=== PATIENT | female | born 1945 | race Caucasian/White ===

== ENCOUNTER 2024-05-15 13:03 | Emergency (ER) | payer MEDICARE, SELFPAY ==
[2024-05-15 13:13] VITALS: BP 117/85; PULSE 81; RESP 16; TEMP 36.6; O2SAT 99
--- OUTSIDE RECORDS SUMMARY | 2024-05-15 13:23 | XMS_ITS | CONTINUITY OF CARE DOCUMENT ---
Author Name daniel sanchez Address Unknown Organization [facility] Address [id number] [place] [address] [address] [place] [address] Phone [phone] Care Team Providers Care Licensed Nuclear Control Room Operator Name Role Phone Harshal LOVING, Mehdi Unavailable [phone] KRISTIN CHRISTOPHER MD Unavailable [phone] PROBLEMS Condition Status Date Provider Notes Cardiology examination active Mehdi gallegos MD Chest pain active Mehdi Caputo MD Shortness of breath with exertion active Mehdi Caputo MD Elevated blood pressure read ing without diagnosis of hypertension completed - Mehdi Caputo MD HTN essential active Mehdi Caputo MD Hyperlipidemia active Mehdi Caputo MD Preoperative cardiovascular evaluation active Faustino Quintana ENCOUNTERS Date Type Provider Location Encounter Diag nosis - In-person encounter Office Visit José Miguel Meyer MD [facility] Preoperative cardiovascular evaluation - In-person encounter Office Visit Mehdi Caputo MD [facility] - In-person encounter Office Visit Mehdi Caputo MD [facility] Elevated blood pressure reading without diagnosis of hypertension - In-person encounter Office Visit Mehdi Caputo MD [facility] Cardiology examinationChest painShortness of breath with exertionHTN essentialHyperlipidemia VITAL SIGNS Date Observation Value Provider Body Mass Index (Ratio) 24.96 kg/m2 Sohan Meyer MD blood pressure, diastolic 68 mm[Hg] Poonam nkLogwilbert blood pressure, systolic 138 mm[Hg] Mariah [facility] oxygen saturation, oximetry 95 % Kenyatta Orting pulse rate 84 /min Kenyatta Orting respiratory rate E&M 12 /min Kenyatta Orting weight E&M 145.4 [lb_av] Kenyatta Orting height E&M 64 [in_i] Kenyatta Orting blood pressure, cuff size regular Raymond crow Orting blood pressure, diastolic 68 mm[Hg] Raymond crow Orting blood pressure, systolic 138 mm[Hg] [facility] Body Mass Index (Ratio) 34.67 kg/m2 Mirza Caputo MD blood pressure, diastolic 93 mm[Hg] Herminia Wilson blood pressure, systolic 176 mm[Hg] Lisette Wilson pulse rate 74 /min Sydni Wilson oxygen saturation, oximetry 98 % Sydni Wilson weight E&M 202 [lb_av] Sydniteri Wilson blood pressure, cuff size large An froilan Wilson height E&M 64 [in_i] Sydni Wilson Body Mass Index (Ratio) 25.74 kg/m2 Mirza Caputo MD blood pressure, diastolic 96 mm[Hg] Poonam nkLogwilbert blood pressure, systolic 166 mm[Hg] Mariah og blood pressure, cuff size regular Ja rret blood pressure, diastolic 96 mm[Hg] Ja rret blood pressure, systolic 166 mm[Hg] Jar ret pulse rate 74 /min Jorge respiratory rate E&M 16 /min Jorge oxygen saturation, oximetry 97 % Jorge weight E&M 150 [lb_av] Jorge y height E&M 64 [in_i] Jorge y Body Mass Index (Ratio) 26.09 kg/m2 Mirza Caputo MD blood pressure, diastolic 82 mm[Hg] Ri carla Bloom blood pressure, systolic 150 mm[Hg] Nahun dakota Bloom blood pressure, cuff size regular Hany Bloom oxygen saturation, oximetry 96 % Janna Bloom respiratory rate E&M 16 /min Hansa Bloom pulse rate 78 /min Janna frederick weight E&M 152 [lb_av] Janna frederick height E&M 64 [in_i] Janna frederick ALLERGIES No Known Drug Allergies HISTORY OF MEDICATION USE Medication Status Instructions Dates Provider Indications Com ments carvedilol 6.25 mg tablet active TAKE 1 TABLET BY MOUTH TWICE A DAY memantine 10 mg tablet active Take 1 tablet by mouth once a day Jorge ibuprofen 800 mg tablet active TAKE 1 TABLET BY MOUTH 3 TIMES DAILY NEEDED FOR PAIN carvedilol 6.25 mg tablet completed Take 1 tablet by mouth twice daily - 4 Jorge atorvastatin 40 mg tablet active Take 1 tablet by mouth once a day Jorge SOCIAL HISTORY Date Observation Value Provider smoking status Never smoker Faustino Quintana smoking status Never smoker Sydni Wilson smoking status Never smoker Mehdi gallegos MD number of grandchildren Mehdi Caputo MD social history E&M S moking History: Andi pawan has never smoked. Mehdi Caputo MD social history reviewed E&M revi ewed - no changes required Mehdi Caputo MD smoking status Never smoker Janna mcarthur INSURANCE PROVIDERS Payer name Policy type / Coverage type Leila red [employer] party ID [employer] H[employer]-POS HMO [id number] ADVANCE DIRECTIVES Name Date DISCUSSED - NO DECISION MADE TREATMENT PLAN Date Name Performer [id number],C,on statin Ruth Ann Caputo MD [id number],C,BP elevated.O n coreg. Mehdi Caputo MD [id number],W,L eft arm and left chest pain with SOB.at rest and on effort. Abnormal EKG and hyperlipidemia. Will arrange exercise stress myoview and echocardiogram. Mehdi Caputo MD Cardiology:This visi t has been a part of the consistent, comprehensive, and ongoing management of the chronic medical condition(s) listed above for the patient. BP today: 138/68 P rior BP: 176/93 (07/03/2023) Her updated medication list for this problem includes: Carvedilol 6.25 Mg Tablet (Carvedilol) ..... Take 1 tablet by mouth twice a day José Miguel Meyer MD Cardiology: H er updated medication list for this problem includes: Carvedilol 6.25 Mg Tablet (Carvedilol) ..... Take 1 tablet by mouth twice a day Orders: S tress Regadenoson ([id number]) Faustino Quintana Cardiology: H er updated medication list for this problem includes: Atorvastatin 40 Mg Tablet (Atorvastatin) ..... Take 1 tablet by mouth once a day Faustino Quintana Cardiology: O rders: S tress Regadenoson ([id number]) Faustino Quintana Cardiology: O rders: S tress Regadenoson ([id number]) Her updated medication list for this problem includes: Carvedilol 6.25 Mg Tablet (Carvedilol) ..... Take 1 tablet by mouth twice a day Faustino Quintana Cardiology: B P today: 138/68 P rior BP: 176/93 (07/03/2023) Her updated medication list for this problem includes: Carvedilol 6.25 Mg Tablet (Carvedilol) ..... Take 1 tablet by mouth twice a day Faustino Quintana Cardiology: H er updated medication list for this problem includes: Atorvastatin 40 Mg Tablet (Atorvastatin) ..... Take 1 tablet by mouth once a day Mehdi Caputo MD Cardiology: Mireya wang. Her updated medication list for this problem includes: Carvedilol 6.25 Mg Tablet (Carvedilol) ..... Take 1 tablet by mouth twice daily Mehdi Caputo MD Cardiology:Remains e levated S he will monitor at home B P today: 176/93 P rior BP: 166/96 (06/06/2023) Her updated medication list for this problem includes: Carvedilol 6.25 Mg Tablet (Carvedilol) ..... Take 1 tablet by mouth twice daily Mehdi Caputo MD Cardiology:No recurr ance since last visit C ontinues on coreg E F 60% Mehdi Caputo MD Cardiology: I ntermittent chest pain since recent passings of her son and . Will obtain echo and optimize BP control. Mehdi Caputo MD Cardiology: C ontinues on atorvastatin. Mehdi Caputo MD Cardiology: Mireya wang. Mehdi Caputo MD Cardiology: B P elevated. On coreg. Will increase coreg to 6.25mg BID. We aim for a BP of 130/80 or lower. She would certainly benefit from an echo to evaluate her LVF and wall motion. Mehdi Caputo MD Cardiology:on statin Mehdi angulo MD Cardiology:BP elevated.On coreg. Mehdi Caputo MD Cardiology:Left arm and left chest pain with SOB.at rest and on effort. Abnormal EKG and hyperlipidemia. Will arrange exercise stress myoview and echocardiogram. Mehdi Caputo MD Date Name Stress Regadenoson Complete Echo Complete Echo Stress Exercise Card iolite HISTORY OF PROCEDURES Procedure Date Procedure Name Provider Procedure Notes S tatus EKG José Miguel Meyer MD completed EKG Mehdi Caputo MD complet ed EKG Mehdi Caputo MD complet ed EKG Mehdi Caputo MD complet ed
--- OUTSIDE RECORDS SUMMARY | 2024-05-15 13:23 | XMS_ITS | Data Portability ---
Author Organization [place] - [facility] [employer], Main Office Address [address] [place] [address] Care Team Providers Care Pocket Grinder Operator Name Role Phone GUILHERME REECE Primary Care Provider [phone] GUILHERME REECE Referring Provider Assessment Encounter Date Assessment Date Assessment LastModified by Organization Details LastModified Time 01/02/2023 01/02/2023 Medicare Wellness Exam --Continue current medications/tr eatments for chronic medical issues. --Recommend mammogram & DEXA scan, pt declines at this time. --Pneumonia vaccination recommended, pt declines. --Flu vax not due until fall. --Recommend Hep B series, pt declines at this time. --Advanced directives information given previously. --Due for colonoscopy, referral generated previously. --Recommend routine yearly f/u for dental, vision, hearing evaluations. -- Hep C screening declined at this time.. --Zkh-Jawwvh-K DCT not indicated at this time. --Recommend shingles vaccination, pt declines at this time. --Recommend Tdap, pt declines at this at this time. --Due for routine labs, pt declines to get labs today. [email or web address] Not available 01/02/2023 09:52:26 Plan of Treatment Reminders Order Date Submit Date Provider Last Modified By Organization Details Last Modified Time Details Appointments None recorded. Lab CBC w/ auto diff 2023 024 [email or web address] 4 [facility] (Lab), [address] [place], [address], 17:18:09 CMP, serum or plasma 2023 024 [email or web address] 4 [facility] (Lab), [address] [place], [address], 4 17:18:27 vitamin D, 25-hydroxy, total, serum [address] (Lab), [address] [place], [address], 3 16:56:08 CBC [address] (Lab), [address] [place], [address], 3 16:54:28 CMP, serum or plasma [address] (Lab), [address] [place], [address], 3 16:54:50 urinalysis complete, reflex culture 2022 023 [email or web address] 5 [facility] (Lab), [address] [place], [address], 3 10:20:25 lipid panel, serum [address] (Lab), [address] [place], [address], 3 16:55:48 Referral cardiologis t referral - Please call patient to schedule an appointment 2023 024 [email or web address] [facility] Referral Fax Line, [address] [facility] [address], [place], [address], 4 08:49:33 tie buyer referral 2022 023 [email or web address] 3 [facility], [address], [place], [address], 3 09:09:29 ophthalmolo gist referral 2022 023 [email or web address] 3 Adolfo Galindo MD, [address] [place], [address], 3 08:03:15 otolaryngol ogist referral 2022 023 [email or web address] 3 Zack Napier, [address], [place], [address], 3 08:38:07 Procedures None recorded. Surgeries None recorded. Imaging electrocard iogram 2023 024 [email or web address] 477 [facility] [address], [place], [address], 4 18:03:51 Medication Orders escitalopra m 10 mg tablet 2023 024 [facility] #[id number], [address] [facility], [place], [address], 4 16:10:23 Patient TargetsNo targets recorded. Patient Instructions Encounter Date Encounter Id Patient Instructions Last Modified By Organization Details Last Modified Time 01/02/2023 [id number] dementia rating scale-2* Not available 01/03/2023 08:49:33 risk assessment* Not available 01/03/2023 08:52:41 fall risk assessment* Not available 01/24/2023 13:52:49 multi-dimensiona l health assessment questionnaire* [email or web address] Not available 01/03/2023 08:49:19 advance directiv es: care instructions Not available 01/02/2023 16:20:21 [place] Advance Directives [email or web address] Not available 01/02/2023 16:20:21 advance care planning: care instructions [email or web address] Not available 01/02/2023 16:20:21 care plan* [email or web address] Not available 01/03 08:49:29 alcohol misuse* [email or web address] Not available 01/03/2023 08:49:51 Personalized [facility] lt Plan and Screening Recommendations Advance Directives - Do you have one? No You have indicated that you are capable of preparing your advance care directive Advance Directives - Do we have your advance directive on file in your health record? Primary Prevention/Interven tion (prevents or decreases the chance of common diseases from occurring) Smoking Risk: Non Smoker Alcohol Misuse Screening: Negative Weight: Appropriate Physical activity: Need more exercise/physical activity minimum of 10-20 minutes of activity that causes mild breathlessness/day Nutrition: Good Average Fall Risk (screened today): Low Vaccines Pneumococcal: Ordered Recommended today Recommended today, but you have declined Influenza: Ordered Recommended today Recommended today, but you have declined Chronic Disease Risks Stroke: Low Risk I have no recommendations Act espinoza diagnosis, Continue current treatment plan Heart Attack: Low risk I have no recommendations Act espinoza diagnosis, Continue current treatment plan Clogging of the Arteries: Low risk I have no recommendations Act espinoza diagnosis, Continue current treatment plan Diabetes: Low Risk Active diagnosis, Continue current treatment plan Secondary Prevention/Interven tion (detects treatable diseases before they may cause symptoms, disability, or ) Breast Cancer Screening with mammogram: Your next mammogram: Ordered Recommended today Recommended today, but you have declined Cervical/Uterine/Ov jesenia Cancer Screening: Your next PAP/pelvic in: Referral to food service tray attendant Recomm ended today Recommended today, but you have declined Osteoporosis Screening: Your next DEXA in: Ordered Recomme nded today Recommended today, but you have declined Date Screening Last Performed: Colon Cancer Screening: Colonoscopy In: Ordered Recomme nded Recommended today, but you have declined Date Screening Last Performed: Eye Disease Screening: Ordered Recommended today Dementia Risk: High My recommendation would be to have an appointment with the Neurologist Depression Screening: Negative Active diagnosis, Continue current treatment plan [email or web address] Not available 01/02/2023 15:11:13 Reason for Referral Water Pumper Referral fo r Hearing difficulty Referring Physician: Guilherme Reece [facility] Medicine, Encounter Date: 10/02/2022 Hide Or Skin Buffer Referral for Abnormal vision Referring Physician: Guilherme Reece Family Medicine, Encounter Date: 10/02/2022 Youth Ministry Director Referral for Hea ring difficulty Referring Physician: Guilherme Reece Family Medicine, Encounter Date: 11/13/2022 Helpdesk Manager Referral for Ch est pain Please call patient to schedule an appointment Referring Physician: Kathia Kurtz Family [facility], Encounter Date: 05/23/2023 Results Created Date Observation Date Name Description Value Unit Range Abnormal Flag Note LastModifiedBy Organization Detail LastModifiedTime 01/03/2001/02/2023 CBC W/O DIFFE RENTI AL white blood cells 5.8 x10'3 /uL 4.2-10 .8 Not Available [facility] (Lab) [address] [place], [address], 01/02/2023 19:20:55 01/03/2001/02/2023 CBC W/O DIFFE RENTI AL red blood cells 4.93 x10'6 /uL 3.80-5 .20 Not Available [facility] (Lab) [address] [place], [address], 01/02/2023 19:20:55 01/03/2001/02/2023 CBC W/O DIFFE RENTI AL hemoglobin 14.9 g/dL 12.0-1 5.6 Not Available [facility] (Lab) [address] [place], [address], 01/02/2023 19:20:55 01/03/2001/02/2023 CBC W/O DIFFE RENTI AL hematocrit 46.9 % 35.7-4 5.7 high Not Available [facility] (Lab) [address] [place], [address], 01/02/2023 19:20:55 01/03/2001/02/2023 CBC W/O DIFFE RENTI AL mean red cell volume 95.1 fL 82.0-9 9.0 Not Available [facility] (Lab) [address] [place], [address], 01/02/2023 19:20:55 01/03/2001/02/2023 CBC W/O DIFFE RENTI AL mean red cell hemoglobin 30.2 pg 27.0-3 3.0 Not Available [facility] (Lab) [address] [place], [address], 01/02/2023 19:20:55 01/03/2001/02/2023 CBC W/O DIFFE RENTI AL mean RBC HGB concentratio n 31.8 g/dL 31.0-3 6.0 Not Available [facility] (Lab) [address] [place], [address], 01/02/2023 19:20:55 01/03/2001/02/2023 CBC W/O DIFFE RENTI AL red cell distribution width 13.4 % 11.8-1 5.5 Not Available [facility] (Lab) [address] [place], [address], 01/02/2023 19:20:55 01/03/2001/02/2023 CBC W/O DIFFE RENTI AL platelets 216 x10'3 /uL 150-40 0 Not Available [facility] (Lab) [address] [place], [address], 01/02/2023 19:20:55 01/03/2001/02/2023 CBC W/O DIFFE RENTI AL mean platelet volume 10.0 fL 9.0-12 .4 Not Available [facility] (Lab) [address] [place], [address], 01/02/2023 19:20:55 01/03/2001/02/2023 COMPR EHENS ESPINOZA METAB OLIC PANEL sodium 138 mmol/ L 137-14 5 Not Available [facility] (Lab) [address] [place], [address], 01/02/2023 19:40:16 01/03/20 23 01/02/2023 COMPR EHENS ESPINOZA METAB OLIC PANEL potassium 4.1 mmol/ L 3.5-5. 1 Not Available [facility] (Lab) [address] [place], [address], 01/02/2023 19:40:16 01/03/20 23 01/02/2023 COMPR EHENS ESPINOZA METAB OLIC PANEL chloride 106 mmol/ L 98-107 Not Available [facility] (Lab) [address] [place], [address], 01/02/2023 19:40:16 01/03/2001/02/2023 COMPR EHENS ESPINOZA METAB OLIC PANEL carbon dioxide 32 mmol/ L 22-30 high Not Available [facility] (Lab) [address] [place], [address], 01/02/2023 19:40:16 01/03/2001/02/2023 COMPR EHENS ESPINOZA METAB OLIC PANEL anion gap 4.1 mmol/ L 14-22 low Not Available [facility] (Lab) [address] [place], [address], 01/02/2023 19:40:16 01/03/20 23 01/02/2023 COMPR EHENS ESPINOZA METAB OLIC PANEL glucose 133 mg/dL 70-99 high Not Available [facility] (Lab) [address] [place], [address], 01/02/2023 19:40:16 01/03/20 23 01/02/2023 COMPR EHENS ESPINOZA METAB OLIC PANEL BUN 12 mg/dL 8-19 Not Available [facility] (Lab) [address] [place], [address], 01/02/2023 19:40:16 01/03/20 23 01/02/2023 COMPR EHENS ESPINOZA METAB OLIC PANEL creatinine 0.77 mg/dL 0.66-1 .25 Not Available [facility] (Lab) [address] [place], [address], 01/02/2023 19:40:16 01/03/2001/02/2023 COMPR EHENS ESPINOZA METAB OLIC PANEL GFR >60 Refer ence Range : [place] ge GFR Healt hy Adult : >60 mL/mi n/1.7 3 m2 Chron ic Kidne y Disea se: 15-60 mL/mi n/1.7 3 m2 Kidne y Failu re: <15/m L/min /1.73 m2 www.n iddk. nih.g ov The MDRD study equat ion has not been valid ated in child bashir <18 years of age; pregn ant women ; the elder ly >85 years of age; or in some racia l or ethni c subgr oups, such as Hispa nics. Outsi de the valid ated sera eters , estim ated GFR is less accur ate, requi ring clini tacos judgm ent on a case- by-ca se basis . Clini tacos inter preta tion for other races and ages must be made by the clini mariel. The MDRD study equat ion has not been valid ated for the evalu ation of serum creat inine relat ed to nutri erick l statu s or medic ation usage . For perso ns <18 years of age, a pedia tric GFR calcu lator is avail able on the [facility] websi te: https :[email or web address] chery.love zendejas/pr ofess ional s/kdo qi/gf r_cal culat or Not Available [facility] (Lab) [address] [place], [address], 01/02/2023 19:40:16 01/03/2001/02/2023 COMPR EHENS ESPINOZA METAB OLIC PANEL alkaline phosphatase 99 U/L 38-126 Not Available [facility] (Lab) [address] [place], [address], 01/02/2023 19:40:16 01/03/2031 1201/02/2023 COMPR EHENS ESPINOZA METAB OLIC PANEL alanine aminotransfe rase 20 U/L 0-35 Not Available [facility] (Lab) [address] [place], [address], 01/02/2023 19:40:16 01/03/20 23 01/02/2023 COMPR EHENS ESPINOZA METAB OLIC PANEL aspartate aminotransfe rase 24 U/L 15-37 Not Available [facility] (Lab) [address] [place], [address], 01/02/2023 19:40:16 01/03/2001/02/2023 COMPR EHENS ESPINOZA METAB OLIC PANEL bilirubin, total 0.90 mg/dL 0.20-1 .30 Not Available [facility] (Lab) [address] [place], [address], 01/02/2023 19:40:16 01/03/2001/02/2023 COMPR EHENS ESPINOZA METAB OLIC PANEL calcium 9.7 mg/dL 8.4-10 .2 Not Available [facility] (Lab) [address] [place], [address], 01/02/2023 19:40:16 01/03/2001/02/2023 COMPR EHENS ESPINOZA METAB OLIC PANEL total protein 7.2 g/dL 6.3-8. 2 Not Available [facility] (Lab) [address] [place], [address], 01/02/2023 19:40:16 01/03/2001/02/2023 COMPR EHENS ESPINOZA METAB OLIC PANEL albumin 4.2 g/dL 3.0-4. 4 Not Available [facility] (Lab) [address] [place], [address], 01/02/2023 19:40:16 01/03/20 23 01/02/2023 COMPR EHENS ESPINOZA METAB OLIC PANEL globulin 3.0 g/dL 2.6-4. 2 Not Available [facility] (Lab) [address] [place], [address], 01/02/2023 19:40:16 01/03/20 23 01/02/2023 COMPR EHENS ESPINOZA METAB OLIC PANEL A/G ratio 1.4 ratio 1.0-2. 0 Not Available [facility] (Lab) [address] [place], [address], 01/02/2023 19:40:16 01/03/20 23 01/02/2023 LIPID PANEL cholesterol 164 mg/dL 140-19 9 NIH MOSHE NSUS RECOM MENDA TION FOR REBECCA STERO L: ADULT CHILD LOW RISK: <200 <170 BORDE RLINE : <200- 239 ----- HIGH RISK: >240 >200 Not Available [facility] (Lab) [address] [place], [address], 01/02/2023 19:40:22 01/03/20 23 01/02/2023 LIPID PANEL triglyceride s 177 mg/dL 0-150 high NIH MOSHE NSUS REPOR T RECOM MENDA TION FOR TRIGL YCERI BOWEN: ADULT CHILD LOW RISK: <150 ----- BODER LINE: 150-1 99 ----- HIGH RISK: >200 ----- Not Available [facility] (Lab) [address] [place], [address], 01/02/2023 19:40:22 01/03/20 23 01/02/2023 LIPID PANEL HDL cholesterol 43 mg/dL 40- Not Available [facility] (Lab) [address] [place], [address], 01/02/2023 19:40:22 01/03/20 23 01/02/2023 LIPID PANEL LDL cholesterol, calculated 86 mg/dL 0-130 NIH MOSHE NSUS REPOR T RECOM MENDA TIONS FOR LDL: ADULT CHILD LOW RISK <130 <110 (OPTI MAL LDL) <100 ----- BORDE RLINE : 130-1 59 ----- HIGH RISK: >160 >130 A TRIGL YCERI DE RESUL T >400 INVAL IDATE S THE CALCU LATIO N FOR LDL FRACT IONAT ION - THE LDL RESUL T WILL NOT BE REPOR BRONSON. Not Available [facility] (Lab) [address] [place], [address], 01/02/2023 19:40:22 01/03/2001/02/2023 VITAM IN D 25-HY DROXY [id number] 45.3 NG/mL 30-100 Vitam in D Statu s: Defic ient: <20 ng/mL Insuf ficie nt: 20-29 ng/mL Suffi cient : 30-10 0 ng/mL Not Available [facility] (Lab) [address] [place], [address], 01/02/2023 19:48:27 01/03/2001/02/2023 URINA LYSIS COMPL ETE/I RIS W/RFX color YELLOW Not Available [facility] (Lab) [address] [place], [address], 01/02/2023 19:49:59 01/03/2001/02/2023 URINA LYSIS COMPL ETE/I RIS W/RFX appear EXTRA TURBID abnormal Not Available [facility] (Lab) [address] [place], [address], 01/02/2023 19:49:59 01/03/2001/02/2023 URINA LYSIS COMPL ETE/I RIS W/RFX specific gravity 1.011 1.001- 1.030 Not Available [facility] (Lab) [address] [place], [address], 01/02/2023 19:49:59 01/03/20 23 01/02/2023 URINA LYSIS COMPL ETE/I RIS W/RFX pH 5.5 pH_un its 5.0-9. 0 Not Available [facility] (Lab) [address] [place], [address], 01/02/2023 19:49:59 01/03/2001/02/2023 URINA LYSIS COMPL ETE/I RIS W/RFX leukocytes >/=500 parker/u L negati ve- abnormal Not Available [facility] (Lab) [address] [place], [address], 01/02/2023 19:49:59 01/03/2001/02/2023 URINA LYSIS COMPL ETE/I RIS W/RFX nitrite 2+ negati ve- abnormal Not Available [facility] (Lab) [address] [place], [address], 01/02/2023 19:49:59 01/03/2001/02/2023 URINA LYSIS COMPL ETE/I RIS W/RFX protein 30 mg/dL negati ve- abnormal Not Available [facility] (Lab) [address] [place], [address], 01/02/2023 19:49:59 01/03/2001/02/2023 URINA LYSIS COMPL ETE/I RIS W/RFX glucose NORMAL mg/dL normal - Not Available [facility] (Lab) [address] [place], [address], 01/02/2023 19:49:59 01/03/2001/02/2023 URINA LYSIS COMPL ETE/I RIS W/RFX ketones NEGATI VE mg/dL negati ve- Not Available [facility] (Lab) [address] [place], [address], 01/02/2023 19:49:59 01/03/2001/02/2023 URINA LYSIS COMPL ETE/I RIS W/RFX urobilinogen NORMAL mg/dL normal - Not Available [facility] (Lab) [address] [place], [address], 01/02/2023 19:49:59 01/03/2001/02/2023 URINA LYSIS COMPL ETE/I RIS W/RFX bilirubin NEGATI VE mg/dL negati ve- Not Available [facility] (Lab) [address] [place], [address], 01/02/2023 19:49:59 01/03/2001/02/2023 URINA LYSIS COMPL ETE/I RIS W/RFX blood 0.2 mg/dL negati ve- abnormal Not Available [facility] (Lab) [address] [place], [address], 01/02/2023 19:49:59 01/03/2001/02/2023 URINA LYSIS COMPL ETE/I RIS W/RFX white blood cells PACKED /i??h pfi?? 0-8 abnormal Not Available [facility] (Lab) [address] [place], [address], 01/02/2023 19:49:59 01/03/2001/02/2023 URINA LYSIS COMPL ETE/I RIS W/RFX white blood cell clumps PACKED FIELD /i??h pfi?? none seen- abnormal Not Available [facility] (Lab) [address] [place], [address], 01/02/2023 19:49:59 01/03/2001/02/2023 URINA LYSIS COMPL ETE/I RIS W/RFX red blood cells 61-80 /i??h pfi?? 0-4 abnormal Not Available [facility] (Lab) [address] [place], [address], 01/02/2023 19:49:59 01/03/2001/02/2023 URINA LYSIS COMPL ETE/I RIS W/RFX bacteria MODERA TE abnormal Not Available [facility] (Lab) [address] [place], [address], 01/02/2023 19:49:59 01/03/2001/02/2023 URINA LYSIS COMPL ETE/I RIS W/RFX squamous epithelial NONE /i??l pfi?? abnormal Not Available [facility] (Lab) [address], [place], [address], 01/02/2023 19:49:59 01/03/2001/02/2023 CULTU RE URINE urc ===== ===== ===== ===== ===== ===== ===== ===== ===== ===== ===== ===== ===== ===== ===== ===== ===== ===== ===== ===== ===== ===== ===== ===== CULTU RE NO.: [id number] Exam Statu s: Final Exam Type: CULTU RE URINE ===== ===== ===== ===== ===== ===== ===== ===== ===== ===== ===== ===== ===== ===== ===== ===== ===== ===== ===== ===== ===== ===== ===== ===== Cultu re Repor t: Organ ism #01 Klebs iella pneum oniae ssp pneum oniae (klep ne) Antib iotic s klepn e Achie vable Achie vable (01) Dosag e Serum Level Urine Level mcg/m l mcg/m l Kim jorje <=2 S 021A Ampic illin >=32 R 021A Ampic illin /Sulb actam 4 S 021A Cefaz timoteo <=4 S 021A Cefep joan <=1 S 021A Cefox itin <=4 S 021A Ceftr iaxon e <=1 S 021A Cipro floxa jorje 0.5 S 021A ESBL NEG - 021A Genta micin <=1 S 021A Levof loxac in 1 S 021A Merop enem <=0.2 5 S 021A Piper acill in./T azaba <=4 S 021A Tobra mycin <=1 S 021A Trmet hopri m.Sul fa <=20 S 021A rt - Test Card Code AST-G N 021A o2 - Final Organ ism KLEBS I 021A af - Antib iotic Fami TRIME T 021A af - Antib iotic Famil y Na ap - Pheno type Name WILD 021A ap - Pheno type Name Nitro furan toin 32 S 021A Not Available [facility] (Lab) [address] [place], [address], 01/05/2023 07:34:54 05/23/19 24 05/23/2023 CBC/C OMPLE TE BLD COUNT W/DIF F white blood cells 6.4 x10'3 /uL 4.2-10 .8 Not Available [facility] (Lab) [address] [place], [address], 05/23/2023 19:45:48 05/23/19 24 05/23/2023 CBC/C OMPLE TE BLD COUNT W/DIF F red blood cells 4.71 x10'6 /uL 3.80-5 .20 Not Available [facility] (Lab) [address] [place], [address], 05/23/2023 19:45:48 05/23/19 24 05/23/2023 CBC/C OMPLE TE BLD COUNT W/DIF F hemoglobin 14.3 g/dL 12.0-1 5.6 Not Available [facility] (Lab) [address] [place], [address], 05/23/2023 19:45:48 05/23/19 24 05/23/2023 CBC/C OMPLE TE BLD COUNT W/DIF F hematocrit 43.2 % 35.7-4 5.7 Not Available [facility] (Lab) [address] [place], [address], 05/23/2023 19:45:48 05/23/19 24 05/23/2023 CBC/C OMPLE TE BLD COUNT W/DIF F mean red cell volume 91.7 fL 82.0-9 9.0 Not Available [facility] (Lab) [address] [place], [address], 05/23/2023 19:45:48 05/23/19 24 05/23/2023 CBC/C OMPLE TE BLD COUNT W/DIF F mean red cell hemoglobin 30.4 pg 27.0-3 3.0 Not Available [facility] (Lab) [address] [place], [address], 05/23/2023 19:45:48 05/23/19 24 05/23/2023 CBC/C OMPLE TE BLD COUNT W/DIF F mean RBC HGB concentratio n 33.1 g/dL 31.0-3 6.0 Not Available [facility] (Lab) [address] [place], [address], 05/23/2023 19:45:48 05/23/19 24 05/23/2023 CBC/C OMPLE TE BLD COUNT W/DIF F red cell distribution width 13.7 % 11.8-1 5.5 Not Available [facility] (Lab) [address] [place], [address], 05/23/2023 19:45:48 05/23/19 24 05/23/2023 CBC/C OMPLE TE BLD COUNT W/DIF F platelets 199 x10'3 /uL 150-40 0 Not Available [facility] (Lab) [address] [place], [address], 05/23/2023 19:45:48 05/23/19 24 05/23/2023 CBC/C OMPLE TE BLD COUNT W/DIF F mean platelet volume 9.9 fL 9.0-12 .4 Not Available [facility] (Lab) [address] [place], [address], 05/23/2023 19:45:48 05/23/19 24 05/23/2023 CBC/C OMPLE TE BLD COUNT W/DIF F neutrophils 60.5 % 39.0-7 2.0 Not Available [facility] (Lab) [address] [place], [address], 05/23/2023 19:45:48 05/23/19 24 05/23/2023 CBC/C OMPLE TE BLD COUNT W/DIF F lymphocytes 27.6 % 16.0-4 7.0 Not Available [facility] (Lab) [address] [place], [address], 05/23/2023 19:45:48 05/23/19 24 05/23/2023 CBC/C OMPLE TE BLD COUNT W/DIF F monocytes 7.8 % 5.0-12 .0 Not Available [facility] (Lab) [address] [place], [address], 05/23/2023 19:45:48 05/23/19 24 05/23/2023 CBC/C OMPLE TE BLD COUNT W/DIF F eosinophils 3.1 % 1.0-7. 0 Not Available [facility] (Lab) [address] [place], [address], 05/23/2023 19:45:48 05/23/19 24 05/23/2023 CBC/C OMPLE TE BLD COUNT W/DIF F basophils 0.8 % 0.0-2. 0 Not Available [facility] (Lab) [address] [place], [address], 05/23/2023 19:45:48 05/23/19 24 05/23/2023 CBC/C OMPLE TE BLD COUNT W/DIF F immature granulocytes 0.2 % 0.00-0 .50 Not Available [facility] (Lab) [address] [place], [address], 05/23/2023 19:45:48 05/23/19 24 05/23/2023 CBC/C OMPLE TE BLD COUNT W/DIF F neutrophils, absolute count 3.90 x10'3 /uL 1.5-8. 0 Not Available [facility] (Lab) [address] [place], [address], 05/23/2023 19:45:48 05/23/19 24 05/23/2023 CBC/C OMPLE TE BLD COUNT W/DIF F lymphocytes, absolute count 1.78 x10'3 /uL 1.07-3 .43 Not Available [facility] (Lab) [address] [place], [address], 05/23/2023 19:45:48 05/23/19 24 05/23/2023 CBC/C OMPLE TE BLD COUNT W/DIF F monocytes, absolute count 0.50 x10'3 /uL 0.29-0 .99 Not Available [facility] (Lab) [address] [place], [address], 05/23/2023 19:45:48 05/23/19 24 05/23/2023 CBC/C OMPLE TE BLD COUNT W/DIF F eosinophils, absolute count 0.20 x10'3 /uL 0.02-0 .53 Not Available [facility] (Lab) [address] [place], [address], 05/23/2023 19:45:48 05/23/19 24 05/23/2023 CBC/C OMPLE TE BLD COUNT W/DIF F basophils, absolute count 0.05 x10'3 /uL 0.01-0 .08 Not Available [facility] (Lab) [address] [place], [address], 05/23/2023 19:45:48 05/23/19 24 05/23/2023 CBC/C OMPLE TE BLD COUNT W/DIF F immature granulocytes ,absolute 0.01 x10'3 /uL 0.00-0 .05 Not Available [facility] (Lab) [address] [place], [address], 05/23/2023 19:45:48 05/23/19 24 05/23/2023 CBC/C OMPLE TE BLD COUNT W/DIF F nucleated red blood cells 0.0 % -0 Not Available [facility] (Lab) [address] [place], [address], 05/23/2023 19:45:48 05/23/19 24 05/23/2023 CBC/C OMPLE TE BLD COUNT W/DIF F NRBC# 0.00 x10'3 /uL Not Available [facility] (Lab) [address] [place], [address], 05/23/2023 19:45:48 05/23/19 24 05/23/2023 COMPR EHENS ESPINOZA METAB OLIC PANEL sodium 141 mmol/ L 137-14 5 Not Available [facility] (Lab) [address] [place], [address], 05/23/2023 19:56:22 05/23/19 24 05/23/2023 COMPR EHENS ESPINOZA METAB OLIC PANEL potassium 4.0 mmol/ L 3.5-5. 1 Not Available [facility] (Lab) [address] [place], [address], 05/23/2023 19:56:22 05/23/19 24 05/23/2023 COMPR EHENS ESPINOZA METAB OLIC PANEL chloride 107 mmol/ L 98-107 Not Available [facility] (Lab) [address] [place], [address], 05/23/2023 19:56:22 05/23/19 24 05/23/2023 COMPR EHENS ESPINOZA METAB OLIC PANEL carbon dioxide 28 mmol/ L 22-30 Not Available [facility] (Lab) [address] [place], [address], 05/23/2023 19:56:22 05/23/19 24 05/23/2023 COMPR EHENS ESPINOZA METAB OLIC PANEL anion gap 10.0 mmol/ L 14-22 low Not Available [facility] (Lab) [address] [place], [address], 05/23/2023 19:56:22 05/23/19 24 05/23/2023 COMPR EHENS ESPINOZA METAB OLIC PANEL glucose 128 mg/dL 70-99 high Not Available [facility] (Lab) [address] [place], [address], 05/23/2023 19:56:22 05/23/19 24 05/23/2023 COMPR EHENS ESPINOZA METAB OLIC PANEL BUN 14 mg/dL 8-19 Not Available [facility] (Lab) [address] [place], [address], 05/23/2023 19:56:22 05/23/19 24 05/23/2023 COMPR EHENS ESPINOZA METAB OLIC PANEL creatinine 0.63 mg/dL 0.66-1 .25 low Not Available [facility] (Lab) [address] [place], [address], 05/23/2023 19:56:22 05/23/19 24 05/23/2023 COMPR EHENS ESPINOZA METAB OLIC PANEL GFR >60 Refer ence Range : [place] ge GFR Healt hy Adult : >60 mL/mi n/1.7 3 m2 Chron ic Kidne y Disea se: 15-60 mL/mi n/1.7 3 m2 Kidne y Failu re: <15/m L/min /1.73 m2 www.n iddk. nih.g ov The MDRD study equat ion has not been valid ated in child bashir <18 years of age; pregn ant women ; the elder ly >85 years of age; or in some racia l or ethni c subgr oups, such as Hiscelso nics. Outsi de the valid ated sera eters , estim ated GFR is less accur ate, requi ring clini tacos judgm ent on a case- by-ca se basis . Clini tacos inter preta tion for other races and ages must be made by the clini mariel. The MDRD study equat ion has not been valid ated for the evalu ation of serum creat inine relat ed to nutri erick l statu s or medic ation usage . For perso ns <18 years of age, a pedia tric GFR calcu lator is avail able on the [facility] websi te: https ://maycol burden.raudel chery.o rg/pr ofess ional s/kdo qi/gf r_cal culat or Not Available [facility] (Lab) [address] [place], [address], 05/23/2023 19:56:22 05/23/19 24 05/23/2023 COMPR EHENS ESPINOZA METAB OLIC PANEL alkaline phosphatase 105 U/L 38-126 Not Available [facility] (Lab) [address] [place], [address], 05/23/2023 19:56:22 05/23/19 24 05/23/2023 COMPR EHENS ESPINOZA METAB OLIC PANEL alanine aminotransfe rase 32 U/L 0-35 Not Available [facility] (Lab) [address] [place], [address], 05/23/2023 19:56:22 05/23/19 24 05/23/2023 COMPR EHENS ESPINOZA METAB OLIC PANEL aspartate aminotransfe rase 37 U/L 15-37 Not Available [facility] (Lab) [address] [place], [address], 05/23/2023 19:56:22 05/23/19 24 05/23/2023 COMPR EHENS ESPINOZA METAB OLIC PANEL bilirubin, total 0.70 mg/dL 0.20-1 .30 Not Available [facility] (Lab) [address] [place], [address], 05/23/2023 19:56:22 05/23/19 24 05/23/2023 COMPR EHENS ESPINOZA METAB OLIC PANEL calcium 9.3 mg/dL 8.4-10 .2 Not Available [facility] (Lab) [address] [place], [address], 05/23/2023 19:56:22 05/23/19 24 05/23/2023 COMPR EHENS ESPINOZA METAB OLIC PANEL total protein 6.7 g/dL 6.3-8. 2 Not Available [facility] (Lab) [address] [place], [address], 05/23/2023 19:56:22 05/23/19 24 05/23/2023 COMPR EHENS ESPINOZA METAB OLIC PANEL albumin 3.9 g/dL 3.0-4. 4 Not Available [facility] (Lab) [address] [place], [address], 05/23/2023 19:56:22 05/23/19 24 05/23/2023 COMPR EHENS ESPINOZA METAB OLIC PANEL globulin 2.8 g/dL 2.6-4. 2 Not Available [facility] (Lab) [address] [place], [address], 05/23/2023 19:56:22 05/23/19 24 05/23/2023 COMPR EHENS ESPINOZA METAB OLIC PANEL A/G ratio 1.4 ratio 1.0-2. 0 Not Available [facility] (Lab) [address] [place], [address], 05/23/2023 19:56:22 05/23/19 24 elect rocar diogr am No observ ation record ed. [email or web address] [facility] [address], [place], [address], 07/01/2023 12:33:33 07/03/19 24 07/03/2023 , echoc arbryson gram No observ ation record ed. [email or web address] [facility] [address], [place], [address], 07/27/2023 19:32:40 Result Notes None recorded. Problems Name Problem SNOMED Code Status Onset Date Resolution Date Notes Provider Name and Address Organization Details Recorded Time Trigger finger of left hand 2612089587268 9107 Active 2021 Not Available [facility] 3 01:06:40 Plantar fasciitis of right foot 5450318445940 9101 Active 2018 Not Available [facility] 3 01:06:40 Lumbar radiculopa thy 947675658 Active Not Available [facility] 3 01:06:40 Dry skin 81727812 Active Not Available [facility] 3 01:06:40 Angina pectoris 841410910 Active Not Available [facility] 3 01:06:40 Staghorn calculus 539955679 Active Not Available [facility] 3 01:06:40 Sahil hematuria 755833137 Active Not Available [facility] 3 01:06:40 Nail deformity 134790041 Active Not Available [facility] 3 01:06:40 Pneumonia 841895102 Active Not Available [facility] 3 01:06:40 General symptom 085725074 Active Not Available [facility] 3 01:06:40 Right upper quadrant pain 141352562 Active Not Available [facility] 3 01:06:41 Syncope and collapse 952023546 Active Not Available [facility] 3 01:06:41 Knee pain Active Not Available [facility] 3 01:06:41 Bronchitis 92636700 Active Not Available [facility] 3 01:06:41 Vitamin D deficiency 57497749 Active Not Available [facility] 3 01:06:41 Hypertensi ve disorder 36497528 Active Not Available [facility] 3 01:06:41 Memory impairment 785017895 Active Not Available [facility] 3 01:06:41 Osteoarthr itis 447418508 Active Not Available [facility] 3 01:06:41 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 728410871 Active Not Available [facility] 3 01:06:42 Onychomyco sis 733143172 Active Not Available [facility] 3 01:06:42 Allergy to bee venom 436848785 Active Not Available [facility] 3 01:06:42 Foot pain 48430028 Active Not Available [facility] 3 01:06:42 Cervical radiculopa thy 74817695 Active Not Available [facility] 3 01:06:42 Hyperlipid emia 43525880 Active Not Available [facility] 3 01:06:42 Essential hypertensi on 68865665 Active Not Available [facility] 3 01:06:42 Allergic rhinitis 97589206 Active Not Available [facility] 3 01:06:43 Urinary tract infectious disease 18673708 Active Not Available [facility] 3 01:06:43 Obstructiv e sleep apnea syndrome 90728320 Active Not Available [facility] 3 01:06:43 Epigastric pain 99033222 Active Not Available [facility] 3 01:06:43 COVID-19 039493694 Active 2020 Not Available [facility] 3 01:06:43 Kidney stone 07678851 Active Not Available [facility] 3 01:06:44 Hearing difficulty 868339155 Active 2022 Guilherme Reece, JERONIMO [address] [facility], [facility] [address], [place], [address] , [facility] 3 11:46:49 Abnormal vision 9501829 Active 2022 JERONIMO Stern [address], [place], [address] , [place] [facility] 3 11:47:22 Dysuria 46373149 Active 2022 JERONIMO Stern [address], [place], [address] , [place] [facility] 3 10:19:53 Chest pain 66229198 Active 2023 Kathia Kurtz MD [address], [place], [address] , [place] [facility] 4 16:06:41 Problem Notes None recorded. Procedures Surgical History Date Name Laterality Status Provider Name and Address Organization Details Recorded Time 3 Medicare Wellness CPT Code, subsequent completed JERONIMO Stern [address], [place], [address], [place] [facility] 01/02/2023 09:47:35 Imaging Results Imaging Date Name Status LastModified by Organization Details LastModified Time 05/23/2023 electrocardiogram completed [facility] [address], [place], [address], 07/01/2023 12:33:33 07/03/2023 US, echocardiogram completed [facility] [address] [facility] [address], [place], [address], 07/27/2023 19:32:40 Procedure Notes None recorded. Medical Equipment None Reported. Allergies Allergen ID Allergen Name Allergen Category Reaction Reaction Severity Criticality Documentation Date Start Date Code Code System Note Provider Name and Address Organization Details Recorded Time 2245 Levaquin medicatio n Not available Not available Not available 05/09/2022 87433 2 RxNorm Not Available [facility] 3 01:24:49 2246 Cipro medicatio n Not available Not available Not available 05/09/202248611 3 RxNorm Not Available [facility] 3 01:24:50 Medications Name Sig Start Date Stop Date Status Note LastModified by Organization Details LastModified Time losartan 50 mg tablet TAKE 1 TABLET EVERY DAY BY ORAL ROUTE FOR 90 DAYS. 08/10 completed Not Available Not Available Not Available cyclobenz aprine 10 mg tablet TAKE 1 TABLET(S ) EVERY DAY BY ORAL ROUTE WITH MEALS FOR 30 DAYS. 04/08 completed Not Available Not Available Not Available amoxicill in 500 mg capsule Take 1 capsule twice a day by oral route for 10 days. active Not Available Not Available No t Available atorvasta tin 40 mg tablet TAKE 1 TABLET BY MOUTH EVERY DAY active Not Available Not Available No t Available methocarb luzmaria 500 mg tablet TAKE 1 TABLET BY MOUTH ONCE DAILY (REPLACI NG FLEXERIL ) active Not Available Not Available No t Available carvedilo l 6.25 mg tablet TAKE 1 TABLET BY MOUTH TWICE A DAY active Not Available Not Available No t Available atorvasta tin 20 mg tablet TAKE 1 TABLET BY MOUTH EVERY DAY 08/10 completed Not Available Not Available Not Available ipratropi um 0.5 mg-albute rol 3 mg (2.5 mg base)/3 mL nebulizat ion soln Inhale 3 mL 4 times a day by nebuliza tion route. 07/21 completed patient tolerate d therapy well Not Available Not Available Not Available azithromy jorje 250 mg tablet TAKE 2 TABLETS BY MOUTH TODAY, THEN TAKE 1 TABLET DAILY FOR 4 DAYS 08/10 completed Not Available Not Available Not Available ibuprofen 800 mg tablet TAKE 1 TABLET BY MOUTH THREE TIMES A DAY NEEDED active Not Available Not Available No t Available Claritin 10 mg tablet Take 1 tablet every day by oral route. 03/31 completed prn Not Available Not Available Not Available metronida zole 500 mg tablet 08/10 completed Not Available Not Available Not Available amlodipin e 5 mg tablet TAKE ONE TABLET BY MOUTH EVERY DAY 08/10 completed Not Available Not Available Not Available ciproflox acin 500 mg tablet Take 1 tablet every 12 hours by oral route for 10 days. 07/15 completed Not Available Not Available Not Available sulfameth oxazole 800 mg-trimet hoprim 160 mg tablet TAKE 1 TABLET BY MOUTH TWICE A DAY active Not Available Not Available No t Available carvedilo l 3.125 mg tablet TAKE 1 TABLET BY MOUTH TWICE A DAY active Not Available Not Available No t Available meloxicam 7.5 mg tablet TAKE 1 TABLET BY MOUTH ONCE DAILY 05/01 completed Not Available Not Available Not Available terbinafi ne HCl 250 mg tablet Take 1 tablet every day by oral route for 90 days. active Not Available Not Available No t Available tamsulosi n 0.4 mg capsule 07/15 completed Not Available Not Available Not Available Kenalog 10 mg/mL suspensio n for injection In office injectio n administ ered by the provider active [facility]: [phone] 06-28 Not Available Not Available Not Available hydrocort isone 1 % topical cream APPLY A THIN LAYER TO THE AFFECTED AREA(S) BY TOPICAL ROUTE 2 TIMES PER DAY 05/01 completed Not Available Not Available Not Available triamcino lone acetonide 40 mg/mL suspensio n for injection Take 40 mg by injectio n route for 1 day. active Not Available Not Available No t Available hydrocodo ne 7.5 mg-acetam inophen 325 mg tablet 07/15 completed Not Available Not Available Not Available cephalexi n 500 mg capsule TAKE 1 CAPSULE BY MOUTH TWICE A DAY FOR 7 DAYS 07/25 completed Not Available Not Available Not Available nitrofura ntoin macrocrys sonja 100 mg capsule Take 1 capsule twice a day by oral route with meals for 7 days. 07/21 completed Not Available Not Available Not Available Xylocaine with Epinephri ne 1 %-1:100,0 00 injection solution Take 2 mL by injectio n route for 1 day. active Not Available Not Available No t Available Tylenol 325 mg tablet Take 2 tablets every 6 hours by oral route as needed. 11/22 completed Not Available Not Available Not Available Levaquin 500 mg tablet Take 1 tablet every 24 hours by oral route for 10 days. 07/21 completed Not Available Not Available Not Available ergocalci ferol (vitamin D2) 1,250 mcg (50,000 unit) capsule TAKE 1 CAPSULE EVERY WEEK BY ORAL ROUTE FOR 90 DAYS. 07/25 completed Not Available Not Available Not Available methylpre dnisolone 4 mg tablets in a dose pack TAKE 6 TABLETS ON DAY 1 DIRECTED ON PACKAGE AND DECREASE BY 1 TAB EACH DAY FOR A TOTAL OF 6 DAYS active Not Available Not Available No t Available cefdinir 300 mg capsule TAKE 1 CAPSULE (300 MG TOTAL) BY MOUTH 2 (TWO) TIMES A DAY FOR 22 DOSES active Not Available Not Available No t Available amoxicill in 500 mg-potass ium clavulana te 125 mg tablet TAKE 1 TABLET BY MOUTH TWICE A DAY active Not Available Not Available No t Available olmesarta n 20 mg tablet TAKE 1 TABLET BY MOUTH EVERY DAY 08/10 completed Not Available Not Available Not Available escitalop ilene 10 mg tablet TAKE 1 TABLET BY MOUTH EVERY DAY active Not Available Not Available No t Available Asprin Ec Low Dose 81 mg tablet,de layed release Take 1 tablet every day by oral route. 2014 active Not Available Not Available Not Avai lable Crestor 20 mg tablet Take 1 tablet every day by oral route. active Not Available Not Available No t Available memantine 10 mg tablet TAKE 1 TABLET BY MOUTH TWICE A DAY active Not Available Not Available No t Available nitrofura ntoin monohydra te/macroc rystals 100 mg capsule TAKE 1 CAPSULE BY MOUTH EVERY 12 HOURS FOR 7 DAYS 08/10 completed Not Available Not Available Not Available Aleve as needed 02/14 completed Not Available Not Available Not Available ibuprofen prn 07/25 completed Not Available Not Available Not Available lidocaine (PF) 10 mg/mL (1 %) injection solution In office injectio n administ ered by the provider active [facility]: [phone] 08-25 Not Available Not Available Not Available Mucinex 1,200 mg tablet, extended release Take 1 tablet every day by oral route as directed . 2013 active Not Available Not Available Not Avai lable Elise 5 mg-40 mg tablet TAKE 1 TABLET BY MOUTH EVERY DAY active Not Available Not Available No t Available Bystolic 5 mg tablet TAKE 1/2 TABLET BY MOUTH EVERY DAY active Not Available Not Available No t Available Syeda Back and Body 500 mg-32.5 mg tablet Take 2 tablets every 6 hours by oral route as needed. 02/14 completed Not Available Not Available Not Available Zorvolex 18 mg capsule Take 1 capsule 3 times a day by oral route. 05/01 completed pa form filled out and faxed to the [employer] Not Available Not Available Not Available Vitals Date Recorded Body height Body mass index (BMI) Body weight Body temperature Heart rate Oxygen saturation Oxygen saturation in Arterial blood by Pulse oximetry Systolic blood pressure Diastolic blood pressure Provider Name and Address Organization Details Last Updated DateTime 3 165.1 cm 24.8 kg/m2 70118.2 6 g 97 [degF] 73 /min 96 % 96 % 132 mm[Hg] 76 mm[Hg] Sahra Pedroza RN [facility] [employer] [facility] 3 11:15:23 Date Recorded Body height Body mass index (BMI) Body weight Body temperature Heart rate Oxygen saturation Oxygen saturation in Arterial blood by Pulse oximetry Systolic blood pressure Diastolic blood pressure Provider Name and Address Organization Details Last Updated DateTime 3 165.1 cm 24.1 kg/m2 69754.8 9 g 95 [degF] 74 /min 96 % 96 % 130 mm[Hg] 72 mm[Hg] aShra Pedroza RN [facility] [employer] [facility] 3 10:46:37 Date Recorded Body height Body mass index (BMI) Body weight Body temperature Heart rate Oxygen saturation Oxygen saturation in Arterial blood by Pulse oximetry Systolic blood pressure Diastolic blood pressure Provider Name and Address Organization Details Last Updated DateTime 3 165.1 cm 23.6 kg/m2 67531.1 2 g 97.9 [degF] 79 /min 96 % 96 % 124 mm[Hg] 66 mm[Hg] Jordyn Cardoso MA [facility] [employer] [facility] 3 15:25:36 Date Recorded Body height Body mass index (BMI) Body weight Body temperature Heart rate Oxygen saturation Oxygen saturation in Arterial blood by Pulse oximetry Systolic blood pressure Diastolic blood pressure Provider Name and Address Organization Details Last Updated DateTime 4 165.1 cm 24.6 kg/m2 98546.6 7 g 98.2 [degF] 82 /min 97 % 97 % 150 mm[Hg] 82 mm[Hg] Jax Paz RN [facility] [employer] [facility] 4 15:24:54 Date Recorded Body height Body mass index (BMI) Body weight Body temperature Heart rate Oxygen saturation Oxygen saturation in Arterial blood by Pulse oximetry Systolic blood pressure Diastolic blood pressure Provider Name and Address Organization Details Last Updated DateTime 4 165.1 cm 25.2 kg/m2 59104.2 5 g 97.6 [degF] 86 /min 97 % 97 % 199 mm[Hg] 103 mm[Hg] Jessica Zimmerman [place] [facility] [employer] 4 12:24:05 Social History Question Answer Notes LastModified by Organizat ion Details LastModified Time Tobacco Smoking Status Never Smoker Not Available [facility] 05/09/2022 00:51:42 Do You Have An Advance Directive? No [id number] Information not available 05/09/2022 What Is Your Level Of Alcohol Consumption? None MIGRATION.[id number] Information not available 05/09/2022 Are You Blind Or Do You Have Difficulty Seeing? No MIGRATION.[id number] Information not available 05/09/2022 What Is Your Level Of Caffeine Consumption? Moderate MIGRATION.[id number] 1321 Information not available 05/09/2022 How Much Tobacco Do You Chew? None MIGRATION.[id number] 1559 Information not available 05/09/2022 In The 14 Days Before Symptom Onset, Have You Had Close Contact With A Laboratory-confir med COVID-19 While That Case Was Ill? No MIGRATION.[id number] Information not available 05/09/2022 In The 14 Days Before Symptom Onset, Have You Had Close Contact With A Person Who Is Under Investigation For COVID-19 While That Person Was Ill? No MIGRATION.[id number] Information not available 05/09/2022 Are You Deaf Or Do You Have Serious Difficulty Hearing? Yes MIGRATION.[id number] Information not available 05/09/2022 What Type Of Diet Are You Following? REGULAR MIGRATION.818270 1357 Information not available 05/09/2022 Which Illicit Or Recreational Drugs Have You Used? None MIGRATION.[id number] 8725 Information not available 05/09/2022 Do You Or Have You Ever Used E-cigarettes Or Vape? Never Used Electronic Cigarettes MIGRATION.622116 [id number] Information not available 05/09/2022 What Is Your Occupation? Retired MIGRATION.390420 4395 Information not available 05/09/2022 Advance Directive- Providers Has Reviewed Directive And Consents To Follow Them (insert Provider Name With Any Objectives In Notes Field) No MIGRATION.[id number] 4784 Information not available 05/09/2022 What Was The Date Of Your Most Recent Tobacco Screening? 07/25/2021 MIGRATION.[id number] 6531 Information not available 05/09/2022 Are You Passively Exposed To Smoke? No MIGRATION.559427 6635 Information not available 05/09/2022 Do You Or Have You Ever Used Smokeless Tobacco? Never Used Smokeless Tobacco MIGRATION.019277 1558 Information not available 05/09/2022 How Much Tobacco Do You Smoke? No MIGRATION.421683 7670 Information not available 05/09/2022 Has Tobacco Cessation Counseling Been Provided? No MIGRATION.500022 6899 Information not available 05/09/2022 Do You Have Any Dietary Restrictions? No MIGRATION.695306 4877 Information not available 05/09/2022 Do You Or Have You Ever Used Any Other Forms Of Tobacco Or Nicotine? No MIGRATION.614335 3892 Information not available 05/09/2022 Sex: Unknown Functional Status Question Answer Note LastModified by Organizat ion Details LastModified Time Do you have difficulty walking or climbing stairs? No MIGRATION.[id number] 26 Information not available 05/09/2022 Do you have difficulty doing errands alone? No MIGRATION.[id number] 26 Information not available 05/09/2022 Do you have difficulty dressing or bathing? No MIGRATION.[id number] 26 Information not available 05/09/2022 What is your exercise level? Occasional MIGRATION.[id number] 26 Information not available 05/09/2022 Mental Status Question Answer Note LastModified by Organizat ion Details LastModified Time Do you have difficulty concentrating, remembering or making decisions? No MIGRATION.[id number] 6 Information not available 05/09/2022 Family History Relationship Description Onset Age of this Age Resolved Age Notes LastModified by Organization Details LastModified Time Father Diabetes mellitus [id number] Not available 05/09/2022 00:53:29 Brother Malignant tumor of lung MIGRATION.880 [id number] Not available 05/09/2022 00:53:29 Daughter Sinusitis MIGRATION.[id number] Not available 05/09/2022 00:53:29 Medical History Condition Response ARTHRITIS Y Gynecological History Statement/Question Response Date of LMP Obstetrics History GPAL:G 4 P 4 0 0 0 Type Value Full Term 4 Total 4 Past Encounters Encounter ID Performer Location Encounter Start Date Encounter Closed Date Diagnosis/Indication Diagnosis SNOMED-CT Code Diagnosis ICD10 Code Diagnosis Note [id number] [facility] [place] [address] [place] [address] 05/10/2020 00:00:00 05/11/2020 19:48:46 [id number] [facility] [place] [address] [place] [address] 08/10/2020 00:00:00 08/10/2020 13:13:49 [id number] [facility] [place] [address] [place] [address] 11/10/2020 00:00:00 11/10/2020 21:03:47 [id number] [facility] [place] [address] [place] [address] 03/07/2021 00:00:00 03/07/2021 13:58:23 [id number] [facility] [place] [address] [place] [address] 06/20/2021 00:00:00 06/20/2021 19:42:41 [id number] [facility] [place] [address] [place] [address] 07/25/2021 00:00:00 07/25/2021 14:49:04 [id number] [facility] [place] [address] [place] [address] 09/19/2021 00:00:00 09/19/2021 17:44:11 [id number] [facility] [place] [address] [place] [address] 10/13/2021 00:00:00 10/13/2021 16:04:32 [id number] [facility] [place] [address] [place] [address] 12/20/2021 00:00:00 12/20/2021 18:10:05 [id number] [facility] [place] [address] [place] [address] 04/04/2022 00:00:00 04/04/2022 14:52:54 [id number] JERONIMO Stern [facility] Primary Care [address] [address] 10/02/2022 10:56:01 10/02/2022 11:58:18 Hearing difficulty 633470265 H91.93 ChronicNo improvemen t with hearing aidsWill refer back to ENT for additional evaluation of ears/sinus es. Will plan for audiology referral once pt has been cleared by ENT. Abnormal vision 7663288 H54.7 New problemWea rs glassesWil l refer to ophthalmol ogy for further evaluation /tx [id number] JERONIMO Stern [address] [address] 11/13/2022 10:38:21 11/13/2022 11:42:46 Hearing difficulty [id number] H91.93 Chronic, no change since last visit.No improvemen t with hearing aids b/c they no longer charge.Ref erred back to ENT for additional evaluation and audiology to check/repa ir hearing aids. Abnormal vision 1175494 H54.7 No change since last visit.Wear s glassesRef erred to ophthalmol ogy for further evaluation /tx last visit. Will reprint referral for pt to schedule. [id number] JERONIMO Stern [facility] [address] [address] 01/02/2023 15:13:08 01/02/2023 16:24:19 Adult health examination [id number] Z00.01 Screening for disorder 223853454 Z13.9 Essential hypertension 44951107 I10 Hyperlipidemia [id number] E78.5 Vitamin D deficiency 347 73591 E55.9 [id number] Kathia Kurtz MD [facility] Primary Care [address] [address] 05/23/2023 15:14:43 05/23/2023 16:36:09 Bereavement [id number] Z63.4 begin escitalopr am 10 mg dailyf/u in 4 weeks or sooner if needed Chest pain [id number] R07. 9 EKG today abnormalca rdiology referral givenrevie wed s/s that warrant urgent/adrian rgent eval in meantime [id number] Kathia Kurtz MD [facility] Primary Care [facility] [address] [place] [address] 07/01/2023 12:09:23 07/01/2023 12:37:37 Bereavement [id number] Z63.4 begin escitalopr am 10 mg dailyf/u in 4 weeks or sooner if needed 07/01/23: improvedco ntinue escitalopr am 10 mg dailyok to f/u in 6 months Chest pain [id number] R07. 9 has establishe d with cardiology has f/u with Dr. Caputo on 07/02 Essential hypertension [id number] I10 not in good control, but cardiology Dr. Caputo is adjusting meds and she has f/u with him on 07/02ok to f/u in 6 months Health Concerns Section Related Observation LastModified by Organization Detai ls LastModified Time None Recorded Concern Status LastModified by Organization Details LastModified Time None Recorded Advance Directives Directive N: Payers Encounter Date Sequence Insurance Name Policy Number Policy Kamara Covered Member ID Kamara Member ID Guarantor Name 10/02/2022 1 [facility] (MEDICARE REPLACEMENT/ ADVANTAGE - HMO) [id number] Germania Wilde [id number] Germania Wilde 11/13/2022 1 [facility] (MEDICARE REPLACEMENT/ ADVANTAGE - HMO) [id number] Germania Wilde [id number] Germania Rojoon 01/02/2023 1 [facility] (MEDICARE REPLACEMENT/ ADVANTAGE - HMO) [id number] Germania Wilde [id number] Germania Wilde 05/23/2023 1 [facility] (MEDICARE REPLACEMENT/ ADVANTAGE - HMO) [id number] Germania Wilde [id number] Germania Rojoon 07/01/2023 1 [facility] (MEDICARE REPLACEMENT/ ADVANTAGE - HMO) [id number] Germania Wilde [id number] Germania Wilde Notes Date Note Type Note Provider Name and Address Organization Details Recorded Time 10/02/2022 text/html 1. Pt in office with for problem hearing in both ears. Pt states she has to pop her ears to be able to hear at all. States she has had hearing aids for several years, but they never worked. States one is broken and won't even charge anymore. Wants to see an ENT.2. Pt also c/o changes in her vision. States there is a film across them sometimes, states it goes away if she wipes her eyes. JERONIMO Stern [address], [place], [address], [employer] 10/02/2022 17:48:54 11/13/2022 text/html 11/13/22: 1. Pt in office with for 6 week f/u appt. Pt states she is still having trouble hearing out of both ears. states they argue b/c she can't hear him. States her appt is later this month with the tie buyer. Pt states her hearing aids don't work b/c they won't charge anymore.2. Pt states she never got a call to schedule appt with ophthalmology. 10/02/22: 1. Pt in office with for problem hearing in both ears. Pt states she has to pop her ears to be able to hear at all. States she has had hearing aids for several years, but they never worked. States one is broken and won't even charge anymore. Wants to see an ENT.2. Pt also c/o changes in her vision. States there is a film across them sometimes, states it goes away if she wipes her eyes. JERONIMO Stern [address], [place], [address], [employer] 11/13/2022 13:55:57 01/02/2023 text/html 1. Pt in office with for MWE. JERONIMO Stern [address], [place], [address], [employer] 01/02/2023 17:11:29 05/23/2023 text/html Lost son william Macdonald in March. Not sleeping wellHer daughter is a good support (daughter lives with her). having chest pain x couple months. Pain can radiate down neck. Has pain right upper arm, right axilla, right chest. Seems to be worse when she is stressed out. Kathia Kurtz MD [address], [place], [address], [employer] 06/02/2023 16:54:33 07/01/2023 text/html Lost son william Macdonald in March. Not sleeping wellHer daughter is a good support (daughter lives with her). having chest pain x couple months. Pain can radiate down neck. Has pain right upper arm, right axilla, right chest. Seems to be worse when she is stressed out. update 07/01/23: saw cardiology on 06/11/23, carvedilol was increased and echo ordered. Has f/u with cardiology this week. No home blood pressures for review. She has noticed some improvement in her stress level since starting escitalopram 10 mg daily. She is now going through her 's things and is coping well. Kathia Kurtz MD [address], [place], [address], [employer] 07/01/2023 12:34:48 OBGyn Episode No OBEpisode recorded.
--- OUTSIDE RECORDS SUMMARY | 2024-05-15 13:23 | XMS_ITS | Referral Summary ---
Author Organization [facility] Address [address] [place] [address] Care Team Providers Care Ms Sql Developer Name Role Phone Taiwo Hernandez MD Unavailable [phone] Cortez Flores MD Unavailable [phone] Misti Galvin MD Unavailable Kathia Kurtz MD Primary Care Provider + Allergies Active Allergy Reactions Criticality Noted Date Comments Ciprofloxacin Unknown 10/16/2020 Levofloxacin Unknown 10/16/2020 Medications carvediloL (COREG) 3.125 mg tabletIndication s:hypertension Take 1 tablet (3.125 mg total) by mouth 2 (two) times a day with meals Active aspirin 81 mg enteric coated tablet Take 1 tablet (81 mg total) by mouth daily On hold for surgery Active Active Problems Problem Noted Date Diagnosed Date Kidney mass 01/06/2024 Pyelonephritis 08/29/2023 Elevated liver function tests 08/29/2023 Staghorn calculus 08/29/2023 Renal lesion 08/29/2023 UTI (urinary tract infection), bacterial 024 Screening for malignant neoplasm 03/29/2022 Overview (03/29/2022): Added automatically from request for surgery [id number] COVID-19 virus infection 10/16/2020 Diverticulitis of large inte joanna without perforation or abscess with bleeding 07/13/2020 Rectal bleeding 07/11/2020 Essential hypertension Acute cystitis without hematuria Thrombocytopenia Social History Tobacco Use Types Packs/Day Years Used Date Smoking Tobacco: Never Smokeless Tobacco: Never Tobacco Cessation:Counseling Given: Not Answered Alcohol Use Standard Drinks/Week Comments Not Currently 0 (1 standard drink = 0.6 oz pur e alcohol) [facility] Utilities Answer Date Recorded In the past 12 months has e electric, gas, oil, or water company threatened to shut off services in your home? No 01/15/2024 Social Connection and Isolat ion Panel [NHANES] Answer Date Recorded In a typical week, how many times do you talk on the phone with family, friends, or neighbors? More than three times a week 01/15/2024 How often do you get togethe r with friends or relatives? Twice a week 01/15/2024 How often do you attend chur ch or scientologist services? Never 01/15/2024 Do you belong to any clubs o r organizations such as advent groups, unions, fraternal or athletic groups, or school groups? No 01/15/2024 How often do you attend meet ings of the clubs or organizations you belong to? Never 01/15/2024 Are you , , di vorced, , never , or living with a partner? 01/15/2024 AUDIT-C Answer Date Recorded Q1: How often do you have a drink containing alcohol? Never 01/13/2024 Q2: How many drinks containi ng alcohol do you have on a typical day when you are drinking? Patient does not drink Q3: How often do you have si x or more drinks on one occasion? Never 01/13/2024 Overall Financial Resource Strain (CARDIA) Answe r Date Recorded How hard is it for you to pa y for the very basics like food, housing, medical care, and heating? Not very hard 01/15/2024 PHQ-2 Answer Date Recorded PHQ-2 Total Score (If total score is 3 or more points, staff should administer the PHQ-9) 0 10/18/2020 Hunger Vital Sign Answer Date Recorded Within the past 12 months, y ou worried that your food would run out before you got the money to buy more. Sometimes true Within the past 12 months, t he food you bought just didn't last and you didn't have money to get more. Sometimes true 08/2023 PRAPARE - Transportation Answer Date Re corded In the past 12 months, has l ack of transportation kept you from medical appointments or from getting medications? No 08/2023 In the past 12 months, has l ack of transportation kept you from meetings, work, or from getting things needed for daily living? No 01/15/2024 Housing Stability Vital Sign Answer Adam e Recorded In the last 12 months, was t here a time when you were not able to pay the mortgage or rent on time? No 01/15/2024 In the past 12 months, how m any times have you moved where you were living? 0 01/15/2024 At any time in the past 12 m [facility], were you homeless or living in a intermediate (including now)? No 01/15/2024 Personal Safety Answer Date Recorded Have you ever been in or are you currently in a harmful physical or emotional relationship or is someone making you feel afraid or unsafe? Denies 01/14/2024 Comments No Sex and Gender Information Value Date Recorded Sex Assigned at Not on file Legal Sex Female 8:06 PM DIRECTOR CHECK Gender Identity Not on file Sexual Orientation Not on file Last Filed Vital Signs Vital Sign Reading Time Taken Comments Blood Pressure 170/65 01/18/2024 8:25 AM DIRECTOR CHECK Pulse 85 01/18/2024 8:25 AM DIRECTOR CHECK Temperature 36.7 C (98.1 F) 01/18/2024 4:59 AM DIRECTOR CHECK Respiratory Rate 16 01/18/2024 4:59 AM DIRECTOR CHECK Oxygen Saturation 98% 01/18/2024 8:25 AM DIRECTOR CHECK Inhaled Oxygen Concentration - - Weight 64 kg (141 lb 1.5 oz) 01/14/2024 10:01 AM DIRECTOR CHECK Height 160 cm (5' 3 ) 01/14/2024 10:01 AM DIRECTOR CHECK Body Mass Index 24.99 01/14/2024 10:01 AM DIRECTOR CHECK Plan of Treatment Not on file Insurance [place] [id number] MEDICARE SOLUTIONS MEDICARE INFUSD Member Subscriber Plan / Payer ( fective 2022-Present) Name:Germania Wilde Relation to Subscriber:Self Name:Germania Wilde Payer ID:[id number] (NAIC) Type:[place] Address: [place] [id number] [place] [id number] MEDICARE INFUSD [place] [address] Advance Directives For more information, please contact: [phone] * Full Code (Latest Code Status on File) Date Activated Date Inactivated Comments 01/14/2024 7:40 PM 01/18/2024 5:11 PM * Full Code Date Activated Date Inactivated Comments 08/27/2023 11:52 PM 08/30/2023 3:29 PM * Full Code Date Activated Date Inactivated Comments 04/18/2022 11:57 AM 04/18/2022 7:43 PM * Full Code Date Activated Date Inactivated Comments 04/18/2022 11:57 AM 04/18/2022 11:57 AM * Full Code Date Activated Date Inactivated Comments 10/16/2020 5:11 PM 10/18/2020 6:30 PM Care Teams Ms Sql Developer Relationship Specialty Start Date End Date Kathia Kurtz MD [address] [place] [address] [address] [place] [address] PCP - General Family Medicine 01/14/24 Taiwo Hernandez MD Consulting Physician Gastroenterology 07/13/20 [place] [address] [place] [address] Consulting Physician Urology 08/30/23 Misti Galvin MD [address] [place] [address] [address], [place] [address] Consulting Physician Gastroenterology 08/30/23
--- OUTSIDE RECORDS SUMMARY | 2024-05-15 13:23 | XMS_ITS | Clinical Summary ---
Author Organization [facility] Address [address] [place] [address] Care Team Providers Care Baby Doctor Name Role Phone Taiwo Hernandez MD Unavailable [phone] Cortez Flores MD Unavailable [phone] Misti Galvin MD Unavailable Kathia Kurtz MD [...] (03/29/2022): Added automatically from request for surgery [id number] COVID-19 virus infection 10/16/2020 Diverticulitis of large inte joanna without perforation or abscess with bleeding 07/13/2020 Rectal bleeding 07/11/2020 Essential hypertension Acute cystitis without hematuria Thrombocytopenia Surgical History Surgery Date Site/Laterality Comments COLONOSCOPY 04/18/2022 TUBAL LIGATION OTHER SURGICAL HISTORY 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 CARPAL TUNNEL RELEASE Right Medical History Medical History Date Comments Hypertension Chronic kidney disease Postoperative delirium HLD (hyperlipidemia) MARTINA (obstructive sleep apnea) IBS (irritable bowel syndrome) Kidney stones Social History Tobacco Use Types Packs/Day Years Used Date Smoking Tobacco: Never Smokeless Tobacco: Never Tobacco Cessation:Counseling Given: Not Answered Alcohol Use Standard Drinks/Week Comments Not Currently 0 (1 standard drink = 0.6 oz pur e alcohol) [facility] Utilities Answer Date Recorded In the past [...] often do you attend chur ch or anabaptism services? Never 01/15/2024 Do you belong to any clubs o r organizations such as cheondoism groups, unions, fraternal or athletic groups, or [...] any time in the past 12 m [facility], were you homeless or living in a skilled nursing (including now)? No 01/15/2024 Personal Safety Answer Date Recorded Have you ever been in or are you currently in a harmful physical or emotional relationship or is someone making you feel afraid or unsafe? Denies 01/14/2024 Comments No Sex and Gender Information Value Date Recorded Sex Assigned at Not on file Legal Sex Female 8:06 PM MACHINE SHOP HELPER Gender Identity Not on file Sexual Orientation Not on file Obstetrics History Last Filed Vital Signs Vital Sign Reading Time Taken Comments Blood Pressure 170/65 01/18/2024 8:25 AM MACHINE SHOP HELPER Pulse 85 01/18/2024 8:25 AM MACHINE SHOP HELPER Temperature 36.7 C (98.1 F) 01/18/2024 4:59 AM MACHINE SHOP HELPER Respiratory Rate 16 01/18/2024 4:59 AM MACHINE SHOP HELPER Oxygen Saturation 98% 01/18/2024 8:25 AM MACHINE SHOP HELPER Inhaled Oxygen Concentration - - Weight 64 kg (141 lb 1.5 oz) 01/14/2024 10:01 AM MACHINE SHOP HELPER Height 160 cm (5' 3 ) 01/14/2024 10:01 AM MACHINE SHOP HELPER Body Mass Index 24.99 01/14/2024 10:01 AM MACHINE SHOP HELPER Plan of Treatment Health Maintenance Due Date Last Done Comments Osteoporosis Screening-Bone Density Scan 1943 DTaP/Tdap/Td Vaccine (1 - Tdap) 1954 Hepatitis B Screening 1961 Pneumococcal vaccine 65+ (1 of 1 - PCV) 1993 Zoster Vaccine (1 of 2) 1993 Well Visit 65+ 2008 Depression Screening 10/16/2021 10/16/2020 Influenza Vaccine (#1) 2023 Fall Risk Assessment 01/17/2025 01/18/2024 Insurance [facility] Address: [place] [id number] [place] [id number] MEDICARE [facility] Address: [facility] [address] [place] [address] [place] [address] Advance Directives For more information, please contact: [phone] * Full Code (Latest Code Status on [...] 5:11 PM 10/18/2020 6:30 PM Care Teams Baby Doctor Relationship Specialty Start Date End Date Kathia Kurtz MD [address] [place] [address] [address] [place] [address] PCP - General Family Medicine 01/14/24 Taiwo Hernandez MD Consulting Physician Gastroenterology 07/13/20 [place] [address] [place] [address] Consulting Physician Urology 08/30/23 Misti Galvin MD [address] [facility] [address] [place] [address] Consulting Physician Gastroenterology 08/30/23
--- OUTSIDE RECORDS SUMMARY | 2024-05-15 13:31 | XMS_ITS | CONTINUITY OF CARE DOCUMENT ---
Author Name daniel sanchez Address Unknown Organization [facility] Address [address] [place] [address] [address] [place] [address] Phone [phone] Care Team Providers Care Sander Portable Machine Name Role Phone Harshal LOVING, Mehdi Unavailable KRISTIN CHRISTOPHER MD Unavailable [phone] PROBLEMS Condition Status Date Provider Notes Cardiology [...] encounter Office Visit José Miguel Meyer MD [facility] Preoperative cardiovascular evaluation - In-person encounter Office Visit Mehdi Caputo MD [facility] - In-person encounter Office Visit Mehdi Caputo MD [facility] Elevated blood pressure reading without diagnosis of hypertension - In-person encounter Office Visit Mehdi Caputo MD [facility] Cardiology examinationChest painShortness of breath with exertionHTN essentialHyperlipidemia VITAL SIGNS Date Observation Value Provider Body Mass Index (Ratio) 24.96 kg/m2 Sohan Meyer MD blood pressure, diastolic 68 mm[Hg] Poonam nkLogwilbert blood pressure, systolic 138 mm[Hg] [facility] oxygen saturation, oximetry 95 % Kenyatta Lincoln pulse rate 84 /min Kenyatta Lincoln respiratory rate E&M 12 /min Kenyatta Lincoln weight E&M 145.4 [lb_av] Kenyatta Lincoln height E&M 64 [in_i] Kenyatta Lincoln blood pressure, cuff size regular Raymond crow Lincoln blood pressure, diastolic 68 mm[Hg] Raymond crow Lincoln blood pressure, systolic 138 mm[Hg] [facility] Lincoln Body Mass Index (Ratio) 34.67 kg/m2 Mirza [...] Policy type / Coverage type Leila red republican ID [employer] MEDICARE ADVANTAGE HMO-POS HMO [id number] ADVANCE DIRECTIVES Name Date DISCUSSED - NO DECISION MADE TREATMENT PLAN Date Name Performer [id number],C,on statin Ruth Ann Caputo MD [id number],C,BP elevated.O n coreg. Mehdi Caputo MD [id number],W,L eft arm and left chest pain with [...] twice a day Orders: S tress Regadenoson ([id number]) Faustino Quintana Cardiology: H er updated medication list for this problem includes: Atorvastatin 40 Mg Tablet (Atorvastatin) ..... Take 1 tablet by mouth once a day Faustino Quintana Cardiology: O rders: S tress Regadenoson ([id number]) Faustino Quintana Cardiology: O rders: S tress Regadenoson ([id number]) Her updated medication list for this problem [...] tablet by mouth once a day Mehdi Cpauto MD Cardiology: Mireya wang. Her updated medication [...]
--- NOTE | 2024-05-15 13:32 | ED.SKABFB ---
HPI - Skin/Abscess/Foreign Bdy General Chief complaint: Skin/Abscess/Foreign Body Stated complaint: Rash/Facial Swelling Time Seen by Provider: 05/15/24 13:32 Source: patient Mode of arrival: ambulatory Limitations: no limitations History of Present Illness HPI narrative: 79 yo F presents with itchy rash to face. Had rash to neck but improved after applying hydrocortisone. Now noticed to face this AM with sore throat. All systems reviewed and negative except as noted above. Related Data Home Medications ?Medication ?Instructions ?Recorded ?Confirmed ?Last Taken ?Type carvedilol 6.25 mg tablet mg 05/15/24 Unknown History Allergies Allergy/AdvReac Type Severity Reaction Status Date / Time No Known Allergies Allergy Unverified 05/15/24 13:24 Review of Systems Review of Systems: CONSTITUTIONAL: Denies fever, chills, or sweats. EYES: Denies visual changes, redness, or discharge. ENT: Denies rhinorrhea, congestion. Reports sore throat. otalgia. CARDIOVASCULAR: Denies chest pain, palpitations, or edema. RESPIRATORY: Denies cough or dyspnea. GASTROINTESTINAL: Denies abdominal pain, nausea, vomiting, or diarrhea. GENITOURINARY: Denies dysuria or hematuria. SKIN: Reports Itchy rash to neck and face. MUSCULOSKELETAL: Denies back pain, joint pain, or myalgia. NEUROLOGIC: Denies headache, numbness, or weakness. PSYCHIATRIC: Denies anxiety or depression. All other systems reviewed are negative, except as documented in HPI. PMFSH Comments At time of signature, agree with nursing past medical, surgical, social and family history. There is no relevant family history pertinent to the presenting complaint. Exam Narrative: GENERAL: This is a well-nourished, well-developed patient, in no apparent distress. HEAD: normocephalic, atraumatic. EYES: PERRL. Sclera clear/white. Vision is grossly intact. EARS: External ears normal, auditory canals clear and without drainage, TMs normal without perforation. Hearing grossly intact. NOSE: External nose normal with no obvious nasal discharge, nares without redness, no rhinorrhea. THROAT: Mucous membranes moist, Erythematous without swelling or exudates NECK: Neck supple, non-tender without lymphadenopathy, masses or thyromegaly. CARDIOVASCULAR: Regular rate and rhythm without murmurs, gallops, or rubs. RESPIRATORY: Clear to auscultation. Breath sounds equal bilaterally. No wheezes, rales, or rhonchi. GASTROINTESTINAL: Abdomen soft, non-tender, nondistended. Bowel sounds are active. No hepato-splenomegaly, or palpable masses. No guarding. SKIN: warm, Dry, intact , good texture and turgor. Erythematous scaly patchy lesions to face. NEURO: awake, alert, and oriented to person, place and time. There were no obvious focal neurologic abnormalities. EXTREMITIES: No joint tenderness, effusion, or edema noted. No calf tenderness. Negative Homans sign bilaterally. BACK: Nontender without deformity. No CVA tenderness. Course Course Level of Care: Express Care Visit Vital Signs Vital signs: Vital Signs Temperature 36.6 C 05/15/24 13:13 Pulse Rate 81 05/15/24 13:13 Respiratory Rate 16 05/15/24 13:13 Blood Pressure 117/85 05/15/24 13:13 Pulse Oximetry 99 05/15/24 13:13 Oxygen Delivery Room Air 05/15/24 13:13 Temperature 36.6 C 05/15/24 13:13 Pulse Rate 81 05/15/24 13:13 Respiratory Rate 16 05/15/24 13:13 Blood Pressure 117/85 05/15/24 13:13 Pulse Oximetry 99 05/15/24 13:13 Oxygen Delivery Room Air 05/15/24 13:13 reviewed MDM - Skin/Abscess/Foreign Bdy MDM Narrative Medical decision making narrative: Please be advised this is a medical document. It is intended for gjno-zv-arux communication. It is written in medical language and may contain unfamiliar abbreviations or verbiage. Medical documents are intended to carry relevant information, facts as evident, and the clinical opinion of the practitioner at the time of the encounter. This report may have been done utilizing a voice recognition system. Attempts have been made to correct errors. However, there may be uncorrected grammatical, spelling, and recognition errors present. The file time of this note does not necessarily represent the time of service. Discharge Plan Discharge Clinical Impression: Allergic reaction Qualifiers: Encounter type: initial encounter Qualified Code(s): T78.40XA - Allergy, unspecified, initial encounter Patient Disposition: Home, Self-Care Condition: Stable Instructions: General Allergic Reaction (ED) Patient Language: Korean Prescriptions: New methylprednisolone [Medrol (Anirudh)] 4 mg tablets,dose pack See Rx Instructions PO .COMPLEX Qty: 21 0RF Rx Instructions: orally per package directions triamcinolone acetonide 0.1 % cream 1 applic topical BID PRN (Reason: rash) Qty: 30 0RF No Action carvedilol 6.25 mg tablet Follow-up/Referrals: UNKNOWN,DOCTOR [Primary Care Provider] - Time of Disposition: 13:56
[2024-05-15 13:53] LABS: EDSTREPNEGPOS1 Negative (Negative)
== END 2024-05-15 14:01 | disposition home or self-care (01) ==
PROVIDERS: Emergency Provider Nurse Practitioner Family
DX: T78.40XA Allergy, unspecified, initial encounter (principal)
CPT/HCPCS: 87081; 87880; 99203; G0463

== ENCOUNTER 2024-07-07 12:56 | Emergency (ER) | payer MEDICARE, SELFPAY ==
[2024-07-07 13:02] VITALS: BP 138/63; PULSE 82; RESP 20; TEMP 36.4; O2SAT 100
--- NOTE | 2024-07-07 13:35 | ED_ITS ---
HPI - Skin/Abscess/Foreign Bdy General Chief complaint: Skin/Abscess/Foreign Body Stated complaint: Tick Bite/Left Side Time Seen by Provider: 07/07/24 13:41 Source: patient Mode of arrival: ambulatory Limitations: no limitations History of Present Illness HPI narrative: 79 y/o female presented for c/o red bump to left side of the chest. Endorses itching to the site. She is accompanied by dtr who states she removed a tick from that site about 5 days ago. Says the tick was loosely attached, but unsure how long it was attached. Pt denies headache, fatigue, n/v/d/f/c. No treatment. Related Data Home Medications ?Medication ?Instructions ?Recorded ?Confirmed ?Last Taken ?Type carvedilol 6.25 mg tablet mg 05/15/24 Unknown History Allergies Allergy/AdvReac Type Severity Reaction Status Date / Time ciprofloxacin Allergy Unknown Unknown Verified 07/07/24 13:41 metronidazole (From Flagyl) Allergy Unknown Unknown Verified 07/07/24 13:41 tamsulosin Allergy Unknown Unknown Verified 07/07/24 13:41 Review of Systems Review of Systems: CONSTITUTIONAL: Denies body aches, fever, chills, or sweats. EYES: Denies visual changes, redness, or discharge. ENT: Denies rhinorrhea, congestion CARDIOVASCULAR: Denies chest pain, palpitations, or edema. RESPIRATORY: Denies cough or dyspnea. GASTROINTESTINAL: Denies abdominal pain, nausea, vomiting, or diarrhea. SKIN: per HPI MUSCULOSKELETAL: Denies back pain, joint pain, or myalgia. NEUROLOGIC: Denies headache, numbness, tingling, or weakness. [facility] Past Medical History Medical History (Updated 07/07/24 @ 13:54 by Diane Morgan APRN) Renal cancer Surgical History Surgical History (Updated 07/07/24 @ 13:54 by Diane Morgan APRN) H/O right nephrectomy Comments At time of signature, I have reviewed and agree with nursing past medical, surgical, social and family history unless otherwise noted. Please see nursing chart for further information. There is no relevant family history pertinent to the presenting complaint Exam Narrative: GENERAL: Well-appearing HEAD: Normocephalic, atraumatic. EYES: conjunctivae clear, and EOMI. ENT: Mucous membranes moist. Oropharynx without edema, erythema or lesions. NECK: Supple. No lymphadenopathy CHEST: Clear to auscultation. HEART: Regular rate and rhythm. SKIN: Warm, dry. Left lateral chest with approx 2mm erythematous scab, no surrounding induration, no fluctuance or drainage, nontender. NEURO: Alert and oriented x3. Course Course Emergency Course: Patient is aware of diagnosis, understands and agrees to treatment plan. Anticipatory guidance given. Patient agrees to follow-up as directed and is aware of reasons to seek care at the emergency department. Portions of this record may have been created with voice recognition software Level of Care: Express Care Visit Vital Signs Vital signs: Vital Signs Temperature 97.6 F 07/07/24 13:02 Pulse Rate 82 07/07/24 13:02 Respiratory Rate 20 07/07/24 13:02 Blood Pressure 138/63 07/07/24 13:02 Pulse Oximetry 100 07/07/24 13:02 Oxygen Delivery Room Air 07/07/24 13:02 Temperature 97.6 F 07/07/24 13:02 Pulse Rate 82 07/07/24 13:02 Respiratory Rate 20 07/07/24 13:02 Blood Pressure 138/63 07/07/24 13:02 Pulse Oximetry 100 07/07/24 13:02 Oxygen Delivery Room Air 07/07/24 13:02 Reviewed MDM - Skin/Abscess/Foreign Bdy MDM Narrative Medical decision making narrative: Discussed physical exam findings; pinpoint erythematous scab to site of tick bite as reported. Advised supportive measures and signs/symptoms to go to the ER. Pt is appropriate for outpt treatment and f/u. Instructed patient to go to nearest ER immediately for any worsening symptoms including but not limited to: fever, spreading rash, pain, or any symptoms concerning to the patient. Differential Diagnosis Differential diagnosis: Likely abscess of skin or subcutaneous tissue, viral exanthem, dermatophytosis, urticaria, herpes zoster, cellulitis, eczema, insect bites, impetigo and contact dermatitis Discharge Plan Discharge Clinical Impression: Insect bites Patient Disposition: Home Condition: Stable Instructions: Antibiotic Form, Lyme Disease (ED), Tick Bite (ED) Additional Instructions: use the cream as directed Keep the area clean and dry. For 30 days following the tick bite please Watch for: -Signs of infection including Increased pain, swelling, warmth, bite red streaks bleeding from the bite or pus draining from the bite. Fever. -New rash, especially a bull?s eye appearance which is a characteristic of Lyme disease, or any rash that expands from the site. - Flu like symptoms including fevers, chills, body aches, fatigue or headache. If you think the tick was attached for over 30 hours, especially deer tick, go to the emergency room Minor redness or swelling at the site of the tick bite is often a normal reaction and should subside within a few days. Follow up with your primary care provider as needed in 1 week Go to the ER for worsening symptoms or concerns Patient Language: Indian Prescriptions: New triamcinolone acetonide 0.1 % cream 1 applic topical BID 7 Days Qty: 30 0RF No Action carvedilol 6.25 mg tablet Follow-up/Referrals: PHYSICIAN,[employer]AD[employer]OCIATE [Primary Care Provider] - Time of Disposition: 13:51
--- OUTSIDE RECORDS SUMMARY | 2024-07-07 14:04 | XMS_ITS | Data Portability ---
Author Organization [place] - [facility] [employer], Main Office Address [address] [place] [address] Care Team Providers Care Forest Logistics Manager Name Role Phone GUILHERME REECE Primary Care Provider [phone] GUILHERME REECE Referring Provider [phone] Assessment Encounter Date Assessment Date Assessment LastModified [...] Hep C screening declined at this time.. --Ydk-Vviplm-P DCT not indicated at this time. --Recommend shingles vaccination, pt declines at this time. --Recommend Tdap, pt declines at this at this time. --Due for routine labs, pt declines to get labs today. [email or web address] Not available 01/02/2023 09:52:26 Plan of Treatment Reminders Order Date Submit Date Provider Last Modified By Organization Details Last Modified Time Details Appointments None recorded. Lab CBC w/ auto diff 2023 024 [email or web address] 4 [facility] (Lab), [address] [place], [address], 17:18:09 CMP, serum or plasma 2023 024 [email or web address] 4 [facility] (Lab), [address] [place], [address], 4 17:18:27 vitamin D, 25-hydroxy, total, serum [address] (Lab), [address] [facility] [place], [address], 3 16:56:08 CBC [address] (Lab), [address] [facility] [place], [address], 3 16:54:28 CMP, serum or plasma [address] (Lab), [address] [place], [address], 3 16:54:50 urinalysis complete, reflex culture 2022 023 [email or web address] 5 [facility] (Lab), [address] [place], [address], 3 10:20:25 lipid panel, serum [address] (Lab), [address] [place], [address], 3 16:55:48 Referral cardiologis t referral - Please call patient to schedule an appointment 2023 024 [email or web address] [facility] Referral Fax Line, [address] [address], [place], [address], 4 08:49:33 tugboat dispatcher referral 2022 023 [email or web address] 3 [facility], [address] [facility], [place], [address], 3 09:09:29 ophthalmolo gist referral 2022 023 [email or web address] 3 Adolfo Galindo MD, [address] [place], [address], 3 08:03:15 otolaryngol ogist referral 2022 023 [email or web address] 3 Zack Napier, [address], [place], [address], 3 08:38:07 Procedures None recorded. Surgeries None recorded. Imaging electrocard iogram 2023 024 [email or web address] 477 [facility] [address], [place], [address], 4 18:03:51 Medication Orders escitalopra m 10 mg tablet 2023 024 [facility][id number], [address] [facility], [place], [address], 4 16:10:23 Patient TargetsNo targets recorded. Patient Instructions Encounter Date Encounter Id Patient Instructions Last Modified By Organization Details Last Modified Time 01/02/2023 [id number] dementia rating scale-2* [email or web address] Not available 01/03/2023 08:49:33 risk assessment* [email or web address] Not available 01/03/2023 08:52:41 fall risk assessment* [email or web address] Not available 01/24/2023 13:52:49 multi-dimensiona l health assessment questionnaire* [email or web address] Not available 01/03/2023 08:49:19 advance directiv es: care instructions [email or web address] Not available 01/02/2023 16:20:21 [place] Advance Directives [email or web address] Not available 01/02/2023 16:20:21 advance care planning: care instructions [email or web address] Not available 01/02/2023 16:20:21 care plan* [email or web address] Not available 01/03 08:49:29 alcohol misuse* [email or web address] Not available 01/03/2023 08:49:51 Personalized [facility] lt Plan and Screening Recommendations Advance [...] Screening: Your next PAP/pelvic in: Referral to technology applications consultant Recomm ended today Recommended today, but you [...] Negative Active diagnosis, Continue current treatment plan Not available 01/02/2023 15:11:13 Reason for Referral Shiftman Referral fo r Hearing difficulty Referring Physician: Guilherme Reece [facility], Encounter Date: 10/02/2022 Remote Sensing Engineer Referral for Abnormal vision Referring Physician: Guilherme Reece Family Medicine, Encounter Date: 10/02/2022 Machine Overhauler Referral for Hea ring difficulty Referring Physician: Guilherme Reece Family Medicine, Encounter Date: 11/13/2022 Early Childhood Teacher Assistant Referral for Ch est pain Please call patient to schedule an appointment Referring Physician: Kathia Kurtz [facility], Encounter Date: 05/23/2023 Results Created Date Observation Date Name Description Value Unit Range Abnormal Flag Note LastModifiedBy Organization Detail LastModifiedTime 01/03/2001/02/2023 CBC W/O DIFFE RENTI AL white blood cells 5.8 x10'3 /uL 4.2-10 .8 Not Available [facility] (Lab) [address] [place], [address], 01/02/2023 19:20:55 01/03/2001/02/2023 CBC W/O DIFFE RENTI AL red blood cells 4.93 x10'6 /uL 3.80-5 .20 Not Available [facility] (Lab) [address] [place], [address], 01/02/2023 19:20:55 01/03/2001/02/2023 CBC W/O DIFFE RENTI AL hemoglobin 14.9 g/dL 12.0-1 5.6 Not Available [facility] (Lab) [address] [place], [address], 01/02/2023 19:20:55 01/03/2001/02/2023 CBC W/O DIFFE RENTI AL hematocrit 46.9 % 35.7-4 5.7 high Not Available [facility] (Lab) [address] [place], [address], 01/02/2023 19:20:55 01/03/2001/02/2023 CBC W/O DIFFE RENTI AL mean red cell volume 95.1 fL 82.0-9 9.0 Not Available [facility] (Lab) [address] [place], [address], 01/02/2023 19:20:55 01/03/2001/02/2023 CBC W/O DIFFE RENTI AL mean red cell hemoglobin 30.2 pg 27.0-3 3.0 Not Available [facility] (Lab) [address] [place], [address], 01/02/2023 19:20:55 01/03/2001/02/2023 CBC W/O DIFFE RENTI AL mean RBC HGB concentratio n 31.8 g/dL 31.0-3 6.0 Not Available [facility] (Lab) [address] [place], [address], 01/02/2023 19:20:55 01/03/2001/02/2023 CBC W/O DIFFE RENTI AL red cell distribution width 13.4 % 11.8-1 5.5 Not Available [facility] (Lab) [address] [place], [address], 01/02/2023 19:20:55 01/03/2001/02/2023 CBC W/O DIFFE RENTI AL platelets 216 x10'3 /uL 150-40 0 Not Available [facility] (Lab) [address] [place], [address], 01/02/2023 19:20:55 01/03/2001/02/2023 CBC W/O DIFFE RENTI AL mean platelet volume 10.0 fL 9.0-12 .4 Not Available [facility] (Lab) [address] [place], [address], 01/02/2023 19:20:55 01/03/2001/02/2023 COMPR EHENS ESPINOZA METAB OLIC PANEL sodium 138 mmol/ L 137-14 5 Not Available [facility] (Lab) [address] [place], [address], 01/02/2023 19:40:16 01/03/20 23 01/02/2023 COMPR EHENS ESPINOZA METAB OLIC PANEL potassium 4.1 mmol/ L 3.5-5. 1 Not Available [facility] (Lab) [address] [place], [address], 01/02/2023 19:40:16 01/03/20 23 01/02/2023 COMPR EHENS ESPINOZA METAB OLIC PANEL chloride 106 mmol/ L 98-107 Not Available [facility] (Lab) [address] [place], [address], 01/02/2023 19:40:16 01/03/2001/02/2023 COMPR EHENS ESPINOZA METAB OLIC PANEL carbon dioxide 32 mmol/ L 22-30 high Not Available [facility] (Lab) [address] [place], [address], 01/02/2023 19:40:16 01/03/2001/02/2023 COMPR EHENS ESPINOZA METAB OLIC PANEL anion gap 4.1 mmol/ L 14-22 low Not Available [facility] (Lab) [address] [place], [address], 01/02/2023 19:40:16 01/03/20 23 01/02/2023 COMPR EHENS ESPINOZA METAB OLIC PANEL glucose 133 mg/dL 70-99 high Not Available [facility] (Lab) [address] [place], [address], 01/02/2023 19:40:16 01/03/20 23 01/02/2023 COMPR EHENS ESPINOZA METAB OLIC PANEL BUN 12 mg/dL 8-19 Not Available [facility] (Lab) [address] [place], [address], 01/02/2023 19:40:16 01/03/20 23 01/02/2023 COMPR EHENS ESPINOZA METAB OLIC PANEL creatinine 0.77 mg/dL 0.66-1 .25 Not Available [facility] (Lab) [address] [place], [address], 01/02/2023 19:40:16 01/03/2001/02/2023 COMPR EHENS ESPINOZA METAB OLIC PANEL GFR >60 Refer ence Range : [place] ge GFR Healt hy Adult : >60 [...] calcu lator is avail able on the [facility] websi te: https ://maycol chery.love zendejas/pr ofess ional s/kdo qi/gf r_cal culat or Not Available [facility] (Lab) [address] [place], [address], 01/02/2023 19:40:16 01/03/2001/02/2023 COMPR EHENS ESPINOZA METAB OLIC PANEL alkaline phosphatase 99 U/L 38-126 Not Available [facility] (Lab) [address] [place], [address], 01/02/2023 19:40:16 01/03/2031 1201/02/2023 COMPR EHENS ESPINOZA METAB OLIC PANEL alanine aminotransfe rase 20 U/L 0-35 Not Available [facility] (Lab) [address] [place], [address], 01/02/2023 19:40:16 01/03/20 23 01/02/2023 COMPR EHENS ESPINOZA METAB OLIC PANEL aspartate aminotransfe rase 24 U/L 15-37 Not Available [facility] (Lab) [address] [place], [address], 01/02/2023 19:40:16 01/03/2001/02/2023 COMPR EHENS ESPINOZA METAB OLIC PANEL bilirubin, total 0.90 mg/dL 0.20-1 .30 Not Available [facility] (Lab) [address] [place], [address], 01/02/2023 19:40:16 01/03/2001/02/2023 COMPR EHENS ESPINOZA METAB OLIC PANEL calcium 9.7 mg/dL 8.4-10 .2 Not Available [facility] (Lab) [address] [place], [address], 01/02/2023 19:40:16 01/03/2001/02/2023 COMPR EHENS ESPINOZA METAB OLIC PANEL total protein 7.2 g/dL 6.3-8. 2 Not Available [facility] (Lab) [address] [place], [address], 01/02/2023 19:40:16 01/03/2001/02/2023 COMPR EHENS ESPINOZA METAB OLIC PANEL albumin 4.2 g/dL 3.0-4. 4 Not Available [facility] (Lab) [address] [place], [address], 01/02/2023 19:40:16 01/03/20 23 01/02/2023 COMPR EHENS ESPINOZA METAB OLIC PANEL globulin 3.0 g/dL 2.6-4. 2 Not Available [facility] (Lab) [address] [place], [address], 01/02/2023 19:40:16 01/03/20 23 01/02/2023 COMPR EHENS ESPINOZA METAB OLIC PANEL A/G ratio 1.4 ratio 1.0-2. 0 Not Available [facility] (Lab) [address] [place], [address], 01/02/2023 19:40:16 01/03/20 23 01/02/2023 LIPID PANEL cholesterol 164 mg/dL 140-19 9 [facility] MOSHE NSUS RECOM MENDA TION FOR REBECCA STERO L: ADULT CHILD LOW RISK: <200 <170 BORDE RLINE : <200- 239 ----- HIGH RISK: >240 >200 Not Available [facility] (Lab) [address] [place], [address], 01/02/2023 19:40:22 01/03/20 23 01/02/2023 LIPID PANEL triglyceride s 177 mg/dL 0-150 high NIH MOSHE NSUS REPOR T RECOM MENDA TION FOR TRIGL YCERI BOWEN: ADULT CHILD LOW RISK: <150 ----- BODER LINE: 150-1 99 ----- HIGH RISK: >200 ----- Not Available [facility] (Lab) [address] [place], [address], 01/02/2023 19:40:22 01/03/20 23 01/02/2023 LIPID PANEL HDL cholesterol 43 mg/dL 40- Not Available [facility] (Lab) [address] [place], [address], 01/02/2023 19:40:22 01/03/20 23 01/02/2023 LIPID PANEL [...] WILL NOT BE REPOR BRONSON. Not Available [facility] (Lab) [address] [place], [address], 01/02/2023 19:40:22 01/03/2001/02/2023 VITAM IN D 25-HY DROXY [id number] 45.3 NG/mL 30-100 Vitam in D Statu s: Defic ient: <20 ng/mL Insuf ficie nt: 20-29 ng/mL Suffi cient : 30-10 0 ng/mL Not Available [facility] (Lab) [address] [place], [address], 01/02/2023 19:48:27 01/03/2001/02/2023 URINA LYSIS COMPL ETE/I RIS W/RFX color YELLOW Not Available [facility] (Lab) [address] [place], [address], 01/02/2023 19:49:59 01/03/2001/02/2023 URINA LYSIS COMPL ETE/I RIS W/RFX appear EXTRA TURBID abnormal Not Available [facility] (Lab) [address] [place], [address], 01/02/2023 19:49:59 01/03/2001/02/2023 URINA LYSIS COMPL ETE/I RIS W/RFX specific gravity 1.011 1.001- 1.030 Not Available [facility] (Lab) [address] [place], [address], 01/02/2023 19:49:59 01/03/20 23 01/02/2023 URINA LYSIS COMPL ETE/I RIS W/RFX pH 5.5 pH_un its 5.0-9. 0 Not Available [facility] (Lab) [address] [place], [address], 01/02/2023 19:49:59 01/03/2001/02/2023 URINA LYSIS COMPL ETE/I RIS W/RFX leukocytes >/=500 parker/u L negati ve- abnormal Not Available [facility] (Lab) [address] [place], [address], 01/02/2023 19:49:59 01/03/2001/02/2023 URINA LYSIS COMPL ETE/I RIS W/RFX nitrite 2+ negati ve- abnormal Not Available [facility] (Lab) [address] [place], [address], 01/02/2023 19:49:59 01/03/2001/02/2023 URINA LYSIS COMPL ETE/I RIS W/RFX protein 30 mg/dL negati ve- abnormal Not Available [facility] (Lab) [address] [place], [address], 01/02/2023 19:49:59 01/03/2001/02/2023 URINA LYSIS COMPL ETE/I RIS W/RFX glucose NORMAL mg/dL normal - Not Available [facility] (Lab) [address] [place], [address], 01/02/2023 19:49:59 01/03/2001/02/2023 URINA LYSIS COMPL ETE/I RIS W/RFX ketones NEGATI VE mg/dL negati ve- Not Available [facility] (Lab) [address] [place], [address], 01/02/2023 19:49:59 01/03/2001/02/2023 URINA LYSIS COMPL ETE/I RIS W/RFX urobilinogen NORMAL mg/dL normal - Not Available [facility] (Lab) [address] [place], [address], 01/02/2023 19:49:59 01/03/2001/02/2023 URINA LYSIS COMPL ETE/I RIS W/RFX bilirubin NEGATI VE mg/dL negati ve- Not Available [facility] (Lab) [address] [place], [address], 01/02/2023 19:49:59 01/03/2001/02/2023 URINA LYSIS COMPL ETE/I RIS W/RFX blood 0.2 mg/dL negati ve- abnormal Not Available [facility] (Lab) [address] [place], [address], 01/02/2023 19:49:59 01/03/2001/02/2023 URINA LYSIS COMPL ETE/I RIS W/RFX white blood cells PACKED /i??h pfi?? 0-8 abnormal Not Available [facility] (Lab) [address] [place], [address], 01/02/2023 19:49:59 01/03/2001/02/2023 URINA LYSIS COMPL ETE/I RIS W/RFX white blood cell clumps PACKED FIELD /i??h pfi?? none seen- abnormal Not Available [facility] (Lab) [address] [place], [address], 01/02/2023 19:49:59 01/03/2001/02/2023 URINA LYSIS COMPL ETE/I RIS W/RFX red blood cells 61-80 /i??h pfi?? 0-4 abnormal Not Available [facility] (Lab) [address] [place], [address], 01/02/2023 19:49:59 01/03/2001/02/2023 URINA LYSIS COMPL ETE/I RIS W/RFX bacteria MODERA TE abnormal Not Available [facility] (Lab) [address] [place], [address], 01/02/2023 19:49:59 01/03/2001/02/2023 URINA LYSIS COMPL ETE/I RIS W/RFX squamous epithelial NONE /i??l pfi?? abnormal Not Available [facility] (Lab) [address], [place], [address], 01/02/2023 19:49:59 01/03/2001/02/2023 CULTU RE URINE urc ===== ===== ===== ===== ===== ===== ===== ===== ===== ===== ===== ===== ===== ===== ===== ===== ===== ===== ===== ===== ===== ===== ===== ===== CULTU RE NO.: [id number] Exam Statu s: Final Exam Type: [...] furan toin 32 S 021A Not Available [facility] (Lab) [address] [place], [address], 01/05/2023 07:34:54 05/23/19 24 05/23/2023 CBC/C OMPLE TE BLD COUNT W/DIF F white blood cells 6.4 x10'3 /uL 4.2-10 .8 Not Available [facility] (Lab) [address] [place], [address], 05/23/2023 19:45:48 05/23/19 24 05/23/2023 CBC/C OMPLE TE BLD COUNT W/DIF F red blood cells 4.71 x10'6 /uL 3.80-5 .20 Not Available [facility] (Lab) [address] [place], [address], 05/23/2023 19:45:48 05/23/19 24 05/23/2023 CBC/C OMPLE TE BLD COUNT W/DIF F hemoglobin 14.3 g/dL 12.0-1 5.6 Not Available [facility] (Lab) [address] [place], [address], 05/23/2023 19:45:48 05/23/19 24 05/23/2023 CBC/C OMPLE TE BLD COUNT W/DIF F hematocrit 43.2 % 35.7-4 5.7 Not Available [facility] (Lab) [address] [place], [address], 05/23/2023 19:45:48 05/23/19 24 05/23/2023 CBC/C OMPLE TE BLD COUNT W/DIF F mean red cell volume 91.7 fL 82.0-9 9.0 Not Available [facility] (Lab) [address] [place], [address], 05/23/2023 19:45:48 05/23/19 24 05/23/2023 CBC/C OMPLE TE BLD COUNT W/DIF F mean red cell hemoglobin 30.4 pg 27.0-3 3.0 Not Available [facility] (Lab) [address] [place], [address], 05/23/2023 19:45:48 05/23/19 24 05/23/2023 CBC/C OMPLE TE BLD COUNT W/DIF F mean RBC HGB concentratio n 33.1 g/dL 31.0-3 6.0 Not Available [facility] (Lab) [address] [place], [address], 05/23/2023 19:45:48 05/23/19 24 05/23/2023 CBC/C OMPLE TE BLD COUNT W/DIF F red cell distribution width 13.7 % 11.8-1 5.5 Not Available [facility] (Lab) [address] [place], [address], 05/23/2023 19:45:48 05/23/19 24 05/23/2023 CBC/C OMPLE TE BLD COUNT W/DIF F platelets 199 x10'3 /uL 150-40 0 Not Available [facility] (Lab) [address] [place], [address], 05/23/2023 19:45:48 05/23/19 24 05/23/2023 CBC/C OMPLE TE BLD COUNT W/DIF F mean platelet volume 9.9 fL 9.0-12 .4 Not Available [facility] (Lab) [address] [place], [address], 05/23/2023 19:45:48 05/23/19 24 05/23/2023 CBC/C OMPLE TE BLD COUNT W/DIF F neutrophils 60.5 % 39.0-7 2.0 Not Available [facility] (Lab) [address] [place], [address], 05/23/2023 19:45:48 05/23/19 24 05/23/2023 CBC/C OMPLE TE BLD COUNT W/DIF F lymphocytes 27.6 % 16.0-4 7.0 Not Available [facility] (Lab) [address] [place], [address], 05/23/2023 19:45:48 05/23/19 24 05/23/2023 CBC/C OMPLE TE BLD COUNT W/DIF F monocytes 7.8 % 5.0-12 .0 Not Available [facility] (Lab) [address] [place], [address], 05/23/2023 19:45:48 05/23/19 24 05/23/2023 CBC/C OMPLE TE BLD COUNT W/DIF F eosinophils 3.1 % 1.0-7. 0 Not Available [facility] (Lab) [address] [place], [address], 05/23/2023 19:45:48 05/23/19 24 05/23/2023 CBC/C OMPLE TE BLD COUNT W/DIF F basophils 0.8 % 0.0-2. 0 Not Available [facility] (Lab) [address] [place], [address], 05/23/2023 19:45:48 05/23/19 24 05/23/2023 CBC/C OMPLE TE BLD COUNT W/DIF F immature granulocytes 0.2 % 0.00-0 .50 Not Available [facility] (Lab) [address] [place], [address], 05/23/2023 19:45:48 05/23/19 24 05/23/2023 CBC/C OMPLE TE BLD COUNT W/DIF F neutrophils, absolute count 3.90 x10'3 /uL 1.5-8. 0 Not Available [facility] (Lab) [address] [place], [address], 05/23/2023 19:45:48 05/23/19 24 05/23/2023 CBC/C OMPLE TE BLD COUNT W/DIF F lymphocytes, absolute count 1.78 x10'3 /uL 1.07-3 .43 Not Available [facility] (Lab) [address] [place], [address], 05/23/2023 19:45:48 05/23/19 24 05/23/2023 CBC/C OMPLE TE BLD COUNT W/DIF F monocytes, absolute count 0.50 x10'3 /uL 0.29-0 .99 Not Available [facility] (Lab) [address] [place], [address], 05/23/2023 19:45:48 05/23/19 24 05/23/2023 CBC/C OMPLE TE BLD COUNT W/DIF F eosinophils, absolute count 0.20 x10'3 /uL 0.02-0 .53 Not Available [facility] (Lab) [address] [place], [address], 05/23/2023 19:45:48 05/23/19 24 05/23/2023 CBC/C OMPLE TE BLD COUNT W/DIF F basophils, absolute count 0.05 x10'3 /uL 0.01-0 .08 Not Available [facility] (Lab) [address] [place], [address], 05/23/2023 19:45:48 05/23/19 24 05/23/2023 CBC/C OMPLE TE BLD COUNT W/DIF F immature granulocytes ,absolute 0.01 x10'3 /uL 0.00-0 .05 Not Available [facility] (Lab) [address] [place], [address], 05/23/2023 19:45:48 05/23/19 24 05/23/2023 CBC/C OMPLE TE BLD COUNT W/DIF F nucleated red blood cells 0.0 % -0 Not Available [facility] (Lab) [address] [place], [address], 05/23/2023 19:45:48 05/23/19 24 05/23/2023 CBC/C OMPLE TE BLD COUNT W/DIF F NRBC# 0.00 x10'3 /uL Not Available [facility] (Lab) [address] [place], [address], 05/23/2023 19:45:48 05/23/19 24 05/23/2023 COMPR EHENS ESPINOZA METAB OLIC PANEL sodium 141 mmol/ L 137-14 5 Not Available [facility] (Lab) [address] [place], [address], 05/23/2023 19:56:22 05/23/19 24 05/23/2023 COMPR EHENS ESPINOZA METAB OLIC PANEL potassium 4.0 mmol/ L 3.5-5. 1 Not Available [facility] (Lab) [address] [place], [address], 05/23/2023 19:56:22 05/23/19 24 05/23/2023 COMPR EHENS ESPINOZA METAB OLIC PANEL chloride 107 mmol/ L 98-107 Not Available [facility] (Lab) [address] [place], [address], 05/23/2023 19:56:22 05/23/19 24 05/23/2023 COMPR EHENS ESPINOZA METAB OLIC PANEL carbon dioxide 28 mmol/ L 22-30 Not Available [facility] (Lab) [address] [place], [address], 05/23/2023 19:56:22 05/23/19 24 05/23/2023 COMPR EHENS ESPINOZA METAB OLIC PANEL anion gap 10.0 mmol/ L 14-22 low Not Available [facility] (Lab) [address] [place], [address], 05/23/2023 19:56:22 05/23/19 24 05/23/2023 COMPR EHENS ESPINOZA METAB OLIC PANEL glucose 128 mg/dL 70-99 high Not Available [facility] (Lab) [address] [place], [address], 05/23/2023 19:56:22 05/23/19 24 05/23/2023 COMPR EHENS ESPINOZA METAB OLIC PANEL BUN 14 mg/dL 8-19 Not Available [facility] (Lab) [address] [place], [address], 05/23/2023 19:56:22 05/23/19 24 05/23/2023 COMPR EHENS ESPINOZA METAB OLIC PANEL creatinine 0.63 mg/dL 0.66-1 .25 low Not Available [facility] (Lab) [address] [place], [address], 05/23/2023 19:56:22 05/23/19 24 05/23/2023 COMPR EHENS ESPINOZA METAB OLIC PANEL GFR >60 Refer ence Range : [place] ge GFR Healt hy Adult : >60 [...] calcu lator is avail able on the [facility] websi te: https ://maycol burden.raudel chery.o rg/pr ofess ional s/kdo qi/gf r_cal culat or Not Available [facility] (Lab) [address] [place], [address], 05/23/2023 19:56:22 05/23/19 24 05/23/2023 COMPR EHENS ESPINOZA METAB OLIC PANEL alkaline phosphatase 105 U/L 38-126 Not Available [facility] (Lab) [address] [place], [address], 05/23/2023 19:56:22 05/23/19 24 05/23/2023 COMPR EHENS ESPINOZA METAB OLIC PANEL alanine aminotransfe rase 32 U/L 0-35 Not Available [facility] (Lab) [address] [place], [address], 05/23/2023 19:56:22 05/23/19 24 05/23/2023 COMPR EHENS ESPINOZA METAB OLIC PANEL aspartate aminotransfe rase 37 U/L 15-37 Not Available [facility] (Lab) [address] [place], [address], 05/23/2023 19:56:22 05/23/19 24 05/23/2023 COMPR EHENS ESPINOZA METAB OLIC PANEL bilirubin, total 0.70 mg/dL 0.20-1 .30 Not Available [facility] (Lab) [address] [place], [address], 05/23/2023 19:56:22 05/23/19 24 05/23/2023 COMPR EHENS ESPINOZA METAB OLIC PANEL calcium 9.3 mg/dL 8.4-10 .2 Not Available [facility] (Lab) [address] [place], [address], 05/23/2023 19:56:22 05/23/19 24 05/23/2023 COMPR EHENS ESPINOZA METAB OLIC PANEL total protein 6.7 g/dL 6.3-8. 2 Not Available [facility] (Lab) [address] [place], [address], 05/23/2023 19:56:22 05/23/19 24 05/23/2023 COMPR EHENS ESPINOZA METAB OLIC PANEL albumin 3.9 g/dL 3.0-4. 4 Not Available [facility] (Lab) [address] [place], [address], 05/23/2023 19:56:22 05/23/19 24 05/23/2023 COMPR EHENS ESPINOZA METAB OLIC PANEL globulin 2.8 g/dL 2.6-4. 2 Not Available [facility] (Lab) [address] [place], [address], 05/23/2023 19:56:22 05/23/19 24 05/23/2023 COMPR EHENS ESPINOZA METAB OLIC PANEL A/G ratio 1.4 ratio 1.0-2. 0 Not Available [facility] (Lab) [address] [place], [address], 05/23/2023 19:56:22 05/23/19 24 elect rocar diogr am No observ ation record ed. [email or web address] [facility] [address], [place], [address], 07/01/2023 12:33:33 07/03/19 24 07/03/2023 , echoc arbryson gram No observ ation record ed. [email or web address] [facility] [address], [place], [address], 07/27/2023 19:32:40 Result Notes None recorded. Problems Name Problem SNOMED Code Status Onset Date Resolution Date Notes Provider Name and Address Organization Details Recorded Time Trigger finger of left hand 8982668135526 9107 Active 2021 Not Available [facility] 3 01:06:40 Plantar fasciitis of right foot 5798404475135 9101 Active 2018 Not Available [facility] 3 01:06:40 Lumbar radiculopa thy 241794913 Active Not Available [facility] 3 01:06:40 Dry skin 93589748 Active Not Available [facility] 3 01:06:40 Angina pectoris 547480449 Active Not Available [facility] 3 01:06:40 Staghorn calculus 905189058 Active Not Available [facility] 3 01:06:40 Sahil hematuria 837660195 Active Not Available [facility] 3 01:06:40 Nail deformity 195156930 Active Not Available [facility] 3 01:06:40 Pneumonia 274401915 Active Not Available [facility] 3 01:06:40 General symptom 274014178 Active Not Available [facility] 3 01:06:40 Right upper quadrant pain 815977963 Active Not Available [facility] 3 01:06:41 Syncope and collapse 371713277 Active Not Available [facility] 3 01:06:41 Knee pain Active Not Available [facility] 3 01:06:41 Bronchitis 51654475 Active Not Available [facility] 3 01:06:41 Vitamin D deficiency 58982103 Active Not Available [facility] 3 01:06:41 Hypertensi ve disorder 90930002 Active Not Available [facility] 3 01:06:41 Memory impairment 855338119 Active Not Available [facility] 3 01:06:41 Osteoarthr itis 154733272 Active Not Available [facility] 3 01:06:41 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 213315911 Active Not Available [facility] 3 01:06:42 Onychomyco sis 513008635 Active Not Available [facility] 3 01:06:42 Allergy to bee venom 305623710 Active Not Available [facility] 3 01:06:42 Foot pain 72756019 Active Not Available [facility] 3 01:06:42 Cervical radiculopa thy 92816504 Active Not Available [facility] 3 01:06:42 Hyperlipid emia 51041884 Active Not Available [facility] 3 01:06:42 Essential hypertensi on 91847973 Active Not Available [facility] 3 01:06:42 Allergic rhinitis 57109661 Active Not Available [facility] 3 01:06:43 Urinary tract infectious disease 06756600 Active Not Available [facility] 3 01:06:43 Obstructiv e sleep apnea syndrome 79525424 Active Not Available [facility] 3 01:06:43 Epigastric pain 16976723 Active Not Available [facility] 3 01:06:43 COVID-19 517598350 Active 2020 Not Available [facility] 3 01:06:43 Kidney stone 18150577 Active Not Available [facility] 3 01:06:44 Hearing difficulty 426780459 Active 2022 Guilherme Reece, JERONIMO [address] [facility] [facility] [address], [place], [address] , [facility] 3 11:46:49 Abnormal vision 1374409 Active 2022 JERONIMO Stern [address], [place], [address] , [place] [facility] 3 11:47:22 Dysuria 54690744 Active 2022 JERONIMO Stern [address], [place], [address] , [place] [facility] 3 10:19:53 Chest pain 82307445 Active 2023 Kathia Kurtz MD [address], [place], [address] , [place] [facility] 4 16:06:41 Problem Notes None recorded. Procedures Surgical History Date Name Laterality Status Provider Name and Address Organization Details Recorded Time 3 Medicare Wellness CPT Code, subsequent completed JERONIMO Stern [address], [place], [address], [place] [facility] 01/02/2023 09:47:35 Imaging Results Imaging Date Name Status LastModified by Organization Details LastModified Time 05/23/2023 electrocardiogram completed [facility] [address], [place], [address], 07/01/2023 12:33:33 07/03/2023 US, echocardiogram completed [facility] [address] [facility] [address], [place], [address], 07/27/2023 19:32:40 Procedure Notes None recorded. Medical Equipment None Reported. Allergies Allergen ID Allergen Name Allergen Category Reaction Reaction Severity Criticality Documentation Date Start Date Code Code System Note Provider Name and Address Organization Details Recorded Time 2245 Levaquin medicatio n Not available Not available Not available 05/09/2022 46167 2 RxNorm Not Available [facility] 3 01:24:49 2246 Cipro medicatio n Not available Not available Not available 05/09/202257274 3 RxNorm Not Available [facility] 3 01:24:50 Medications Name Sig Start [...] n administ ered by the provider active [facility]: [id number] 06-28 Not Available Not Available Not [...] n administ ered by the provider active [facility]: [phone] 08-25 Not Available Not Available Not [...] form filled out and faxed to the [employer] Not Available Not Available Not Available Vitals Date Recorded Body height Body mass index (BMI) Body weight Body temperature Heart rate Oxygen saturation Oxygen saturation in Arterial blood by Pulse oximetry Systolic blood pressure Diastolic blood pressure Provider Name and Address Organization Details Last Updated DateTime 3 165.1 cm 24.8 kg/m2 39396.2 6 g 97 [degF] 73 /min 96 % 96 % 132 mm[Hg] 76 mm[Hg] Sahra Pedroza RN [facility] 3 11:15:23 Date Recorded Body height Body mass index (BMI) Body weight Body temperature Heart rate Oxygen saturation Oxygen saturation in Arterial blood by Pulse oximetry Systolic blood pressure Diastolic blood pressure Provider Name and Address Organization Details Last Updated DateTime 3 165.1 cm 24.1 kg/m2 40760.8 9 g 95 [degF] 74 /min 96 % 96 % 130 mm[Hg] 72 mm[Hg] Sahra Pedroza RN [facility] 3 10:46:37 Date Recorded Body height Body mass index (BMI) Body weight Body temperature Heart rate Oxygen saturation Oxygen saturation in Arterial blood by Pulse oximetry Systolic blood pressure Diastolic blood pressure Provider Name and Address Organization Details Last Updated DateTime 3 165.1 cm 23.6 kg/m2 78453.1 2 g 97.9 [degF] 79 /min 96 % 96 % 124 mm[Hg] 66 mm[Hg] Jordyn Cardoso MA [facility] 3 15:25:36 Date Recorded Body height Body mass index (BMI) Body weight Body temperature Heart rate Oxygen saturation Oxygen saturation in Arterial blood by Pulse oximetry Systolic blood pressure Diastolic blood pressure Provider Name and Address Organization Details Last Updated DateTime 4 165.1 cm 24.6 kg/m2 58832.6 7 g 98.2 [degF] 82 /min 97 % 97 % 150 mm[Hg] 82 mm[Hg] Jax Paz RN [facility] 4 15:24:54 Date Recorded Body height Body mass index (BMI) Body weight Body temperature Heart rate Oxygen saturation Oxygen saturation in Arterial blood by Pulse oximetry Systolic blood pressure Diastolic blood pressure Provider Name and Address Organization Details Last Updated DateTime 4 165.1 cm 25.2 kg/m2 69065.2 5 g 97.6 [degF] 86 /min 97 % 97 % 199 mm[Hg] 103 mm[Hg] Jessica Zimmerman [place] [facility] [employer] 4 12:24:05 Social History Question Answer Notes LastModified by Organizat ion Details LastModified Time Tobacco Smoking Status Never Smoker Not Available [facility] 05/09/2022 00:51:42 Do You Have An Advance Directive? No [id number].[id number] Information not available 05/09/2022 What Is Your Level Of Alcohol Consumption? None MIGRATION.339731 2494 Information not available 05/09/2022 Are You Blind Or Do You Have Difficulty Seeing? No MIGRATION.068299 8908 Information not available 05/09/2022 What Is Your Level Of Caffeine Consumption? Moderate MIGRATION.676953 9357 Information not available 05/09/2022 How Much Tobacco Do You Chew? None MIGRATION.659428 9317 Information not available 05/09/2022 In The 14 Days Before Symptom Onset, Have You Had Close Contact With A Laboratory-confir med COVID-19 While That Case Was Ill? No MIGRATION.407345 5100 Information not available 05/09/2022 In The 14 Days Before Symptom Onset, Have You Had Close Contact With A Person Who Is Under Investigation For COVID-19 While That Person Was Ill? No MIGRATION.415930 4503 Information not available 05/09/2022 Are You Deaf Or Do You Have Serious Difficulty Hearing? Yes MIGRATION.784309 0602 Information not available 05/09/2022 What Type Of Diet Are You Following? REGULAR MIGRATION.928523 5970 Information not available 05/09/2022 Which Illicit Or Recreational Drugs Have You Used? None MIGRATION.995857 8675 Information not available 05/09/2022 Do You Or Have You Ever Used E-cigarettes Or Vape? Never Used Electronic Cigarettes MIGRATION.833957 4358 Information not available 05/09/2022 What Is Your Occupation? Retired MIGRATION.294750 9659 Information not available 05/09/2022 Advance Directive- Providers Has Reviewed Directive And Consents To Follow Them (insert Provider Name With Any Objectives In Notes Field) No MIGRATION.471493 6219 Information not available 05/09/2022 What Was The Date Of Your Most Recent Tobacco Screening? 07/25/2021 MIGRATION.849180 8923 Information not available 05/09/2022 Are You Passively Exposed To Smoke? No MIGRATION.830923 9093 Information not available 05/09/2022 Do You Or Have You Ever Used Smokeless Tobacco? Never Used Smokeless Tobacco MIGRATION.293876 6497 Information not available 05/09/2022 How Much Tobacco Do You Smoke? No MIGRATION.432827 4501 Information not available 05/09/2022 Has Tobacco Cessation Counseling Been Provided? No MIGRATION.701610 2146 Information not available 05/09/2022 Do You Have Any Dietary Restrictions? No MIGRATION.119403 4242 Information not available 05/09/2022 Do You Or Have You Ever Used Any Other Forms Of Tobacco Or Nicotine? No MIGRATION.913011 7886 Information not available 05/09/2022 Sex: Unknown Functional Status Question Answer Note LastModified by Organizat ion Details LastModified Time Do you have difficulty walking or climbing stairs? No MIGRATION.29003172 26 Information not available 05/09/2022 Do you have difficulty doing errands alone? No MIGRATION.01094715 26 Information not available 05/09/2022 Do you have difficulty dressing or bathing? No MIGRATION.99127750 26 Information not available 05/09/2022 What is your exercise level? Occasional MIGRATION.80255945 26 Information not available 05/09/2022 Mental Status Question Answer Note LastModified by Organizat ion Details LastModified Time Do you have difficulty concentrating, remembering or making decisions? No MIGRATION.577785852 6 Information not available 05/09/2022 Family History Relationship Description Onset Age of this Age Resolved Age Notes LastModified by Organization Details LastModified Time Father Diabetes mellitus MIGRATION.191 [id number] Not available 05/09/2022 00:53:29 Brother Malignant neoplasm of lung MIGRATION.797 [id number] Not available 05/09/2022 00:53:29 Daughter Sinusitis MIGRATION.188 [id number] Not available 05/09/2022 00:53:29 Medical History Condition Response ARTHRITIS Y Gynecological History Statement/Question Response Date of LMP Obstetrics History GPAL:G 4 P 4 0 0 0 Type Value Full Term 4 Total 4 Past Encounters Encounter ID Performer Location Encounter Start Date Encounter Closed Date Diagnosis/Indication Diagnosis SNOMED-CT Code Diagnosis ICD10 Code Diagnosis Note [id number] [facility] [place] [address] [place] [address] 05/10/2020 00:00:00 05/11/2020 19:48:46 [id number] [facility] [place] [address] [place] [address] 08/10/2020 00:00:00 08/10/2020 13:13:49 [id number] [facility] [place] [address] [place] [address] 11/10/2020 00:00:00 11/10/2020 21:03:47 [id number] [facility] [place] [address] [place] [address] 03/07/2021 00:00:00 03/07/2021 13:58:23 [id number] [facility] [place] [address] [place] [address] 06/20/2021 00:00:00 06/20/2021 19:42:41 [id number] [facility] [place] [address] [place] [address] 07/25/2021 00:00:00 07/25/2021 14:49:04 [id number] [facility] [place] [address] [place] [address] 09/19/2021 00:00:00 09/19/2021 17:44:11 [id number] [facility] [place] [address] [place] [address] 10/13/2021 00:00:00 10/13/2021 16:04:32 [id number] [facility] [place] [address] [place] [address] 12/20/2021 00:00:00 12/20/2021 18:10:05 [id number] [facility] [place] [address] [place] [address] 04/04/2022 00:00:00 04/04/2022 14:52:54 [id number] JERONIMO Stern [facility] Primary Care [address] [address] 10/02/2022 10:56:01 10/02/2022 11:58:18 Hearing difficulty 141542685 H91.93 ChronicNo improvemen t with hearing aidsWill refer back to ENT for additional evaluation of ears/sinus es. Will plan for audiology referral once pt has been cleared by ENT. Abnormal vision 6310514 H54.7 New problemWea rs glassesWil l refer to ophthalmol ogy for further evaluation /tx [id number] JERONIMO Stern [address] [address] 11/13/2022 10:38:21 11/13/2022 11:42:46 Hearing difficulty 679706531 H91.93 Chronic, no change since last visit.No improvemen t with hearing aids b/c they no longer charge.Ref erred back to ENT for additional evaluation and audiology to check/repa ir hearing aids. Abnormal vision 4793993 H54.7 No change since last visit.Wear s glassesRef erred to ophthalmol ogy for further evaluation /tx last visit. Will reprint referral for pt to schedule. [id number] JERONIMO Stern [facility] Care [address] [address] 01/02/2023 15:13:08 01/02/2023 16:24:19 Adult health examination 618727458 Z00.01 Screening for disorder 061311695 Z13.9 Essential hypertension 88355861 I10 Hyperlipidemia 08575800 E78.5 Vitamin D deficiency 347 78735 E55.9 [id number] Kathia Kurtz MD [facility] Primary Care [address] [address] 05/23/2023 15:14:43 05/23/2023 16:36:09 Bereavement 24471389 Z63.4 begin escitalopr am 10 mg dailyf/u in 4 weeks or sooner if needed Chest pain 15028260 R07. 9 EKG today abnormalca rdiology referral givenrevie wed s/s that warrant urgent/adrian rgent eval in meantime [id number] Kathia Kurtz MD [facility] Primary [facility] [address] [facility] [address] [place] [address] 07/01/2023 12:09:23 07/01/2023 12:37:37 Bereavement 90782162 Z63.4 begin escitalopr am 10 mg dailyf/u in 4 weeks or sooner if needed 07/01/23: improvedco ntinue escitalopr am 10 mg dailyok to f/u in 6 months Chest pain 29480946 R07. 9 has establishe d with cardiology has f/u with Dr. Caputo on 07/02 Essential hypertension 49820737 I10 not in good control, but cardiology [...] Kamara Member ID Guarantor Name 10/02/2022 1 [facility] (MEDICARE REPLACEMENT/ ADVANTAGE - HMO) [id number] Germania Wilde [id number] Germania Wilde 11/13/2022 1 [facility] (MEDICARE REPLACEMENT/ ADVANTAGE - HMO) [id number] Germania Wilde [id number] Germania Rojoon 01/02/2023 1 [facility] (MEDICARE REPLACEMENT/ ADVANTAGE - HMO) [id number] Germania Wilde [id number] Germania Wilde 05/23/2023 1 [facility] (MEDICARE REPLACEMENT/ ADVANTAGE - HMO) [id number] Germania Wilde [id number] Germania Rojoon 07/01/2023 1 [facility] (MEDICARE REPLACEMENT/ ADVANTAGE - HMO) [id number] Germania Wilde [id number] Germania Wilde Notes Date Note Type Note [...] she wipes her eyes. JERONIMO Stern [address], [place], [address], [employer] 10/02/2022 17:48:54 11/13/2022 text/html 11/13/22: 1. Pt in office with for 6 week f/u appt. Pt states she is still having trouble hearing out of both ears. states they argue b/c she can't hear him. States her appt is later this month with the tugboat dispatcher. Pt states her hearing aids don't work [...] she wipes her eyes. JERONIMO Stern [address], [place], [address], [employer] 11/13/2022 13:55:57 01/02/2023 text/html 1. Pt in office with for MWE. JERONIMO Stern [address], [place], [address], [employer] 01/02/2023 17:11:29 05/23/2023 text/html Lost son william Macdonald in March. Not sleeping wellHer daughter is a good support (daughter lives with her). having chest pain x couple months. Pain can radiate down neck. Has pain right upper arm, right axilla, right chest. Seems to be worse when she is stressed out. Kathia Kurtz MD [address], [place], [address], [employer] 06/02/2023 16:54:33 07/01/2023 text/html Lost son william [...] Kurtz MD [address], [place], [address], [employer] 07/01/2023 12:34:48 OBGyn Episode No OBEpisode recorded.
--- OUTSIDE RECORDS SUMMARY | 2024-07-07 14:04 | XMS_ITS | Referral Summary ---
Author Organization [facility] Address [address] [place] [address] Care Team Providers Care Ships Or Barges Loader Name Role Phone Taiwo Hernandez MD Unavailable [phone] Cortez Flores MD Unavailable [phone] Misti Galvin MD Unavailable Kathia Kurtz MD [...] (03/29/2022): Added automatically from request for surgery [id number] COVID-19 virus infection 10/16/2020 Diverticulitis of large inte joanna without perforation or abscess with bleeding 07/13/2020 Rectal bleeding 07/11/2020 Essential hypertension Acute cystitis without hematuria Thrombocytopenia Social History Tobacco Use Types Packs/Day Years Used Date Smoking Tobacco: Never Smokeless Tobacco: Never Tobacco Cessation:Counseling Given: Not Answered Alcohol Use Standard Drinks/Week Comments Not Currently 0 (1 standard drink = 0.6 oz pur e alcohol) [facility] Utilities Answer Date Recorded In the past [...] often do you attend chur ch or buddhist services? Never 01/15/2024 Do you belong to any clubs o r organizations such as mu-ism groups, unions, fraternal or athletic groups, or [...] any time in the past 12 m [facility], were you homeless or living in a group home (including now)? No 01/15/2024 Personal Safety Answer Date Recorded Have you ever been in or are you currently in a harmful physical or emotional relationship or is someone making you feel afraid or unsafe? Denies 01/14/2024 Comments No Sex and Gender Information Value Date Recorded Sex Assigned at Not on file Legal Sex Female 8:06 PM CREATIVE DEVELOPER Gender Identity Not on file Sexual Orientation Not on file Last Filed Vital Signs Vital Sign Reading Time Taken Comments Blood Pressure 170/65 01/18/2024 8:25 AM CREATIVE DEVELOPER Pulse 85 01/18/2024 8:25 AM CREATIVE DEVELOPER Temperature 36.7 C (98.1 F) 01/18/2024 4:59 AM CREATIVE DEVELOPER Respiratory Rate 16 01/18/2024 4:59 AM CREATIVE DEVELOPER Oxygen Saturation 98% 01/18/2024 8:25 AM CREATIVE DEVELOPER Inhaled Oxygen Concentration - - Weight 64 kg (141 lb 1.5 oz) 01/14/2024 10:01 AM CREATIVE DEVELOPER Height 160 cm (5' 3 ) 01/14/2024 10:01 AM CREATIVE DEVELOPER Body Mass Index 24.99 01/14/2024 10:01 AM CREATIVE DEVELOPER Plan of Treatment Not on file Insurance [address] MEDICARE ADVANTAGE [place] [id number] MEDICARE ADVANTAGE [place] [id number] MEDICARE ADVANTAGE [place] [id number] Advance Directives For more information, please contact: [phone] * Full Code (Latest Code Status on [...] 5:11 PM 10/18/2020 6:30 PM Care Teams Ships Or Barges Loader Relationship Specialty Start Date End Date Kathia Kurtz MD [address] [place] [address] [address] [place] [address] PCP - General Family Medicine 01/14/24 Taiwo Hernandez MD Consulting Physician Gastroenterology 07/13/20 [place] [address] [place] [address] Consulting Physician Urology 08/30/23 Misti Galvin MD [address] [place] [address] [address], [place] [address] Consulting Physician Gastroenterology 08/30/23
--- OUTSIDE RECORDS SUMMARY | 2024-07-07 14:04 | XMS_ITS | Clinical Summary ---
Author Organization [facility] Address [address] [place] [address] Care Team Providers Care Marketing Operations Assistant Name Role Phone Taiwo Hernandez MD Unavailable [phone] Cortez Flores MD Unavailable [phone] Misti Galvin MD Unavailable Kathia Kurtz MD [...] (03/29/2022): Added automatically from request for surgery [id number] COVID-19 virus infection 10/16/2020 Diverticulitis of large [...] drink = 0.6 oz pur e alcohol) [facility] Utilities Answer Date Recorded In the past [...] often do you attend chur ch or latter-day services? Never 01/15/2024 Do you belong to any clubs o r organizations such as voodoo groups, unions, fraternal or athletic groups, or [...] any time in the past 12 m [facility], were you homeless or living in a detention (including now)? No 01/15/2024 Personal Safety Answer Date Recorded Have you ever been in or are you currently in a harmful physical or emotional relationship or is someone making you feel afraid or unsafe? Denies 01/14/2024 Comments No Sex and Gender Information Value Date Recorded Sex Assigned at Not on file Legal Sex Female 8:06 PM GRAVEL HAULER Gender Identity Not on file Sexual Orientation Not on file Obstetrics History Last Filed Vital Signs Vital Sign Reading Time Taken Comments Blood Pressure 170/65 01/18/2024 8:25 AM GRAVEL HAULER Pulse 85 01/18/2024 8:25 AM GRAVEL HAULER Temperature 36.7 C (98.1 F) 01/18/2024 4:59 AM GRAVEL HAULER Respiratory Rate 16 01/18/2024 4:59 AM GRAVEL HAULER Oxygen Saturation 98% 01/18/2024 8:25 AM GRAVEL HAULER Inhaled Oxygen Concentration - - Weight 64 kg (141 lb 1.5 oz) 01/14/2024 10:01 AM GRAVEL HAULER Height 160 cm (5' 3 ) 01/14/2024 10:01 AM GRAVEL HAULER Body Mass Index 24.99 01/14/2024 10:01 AM GRAVEL HAULER Plan of Treatment Health Maintenance Due Date Last Done Comments Osteoporosis Screening-Bone Density Scan 1943 DTaP/Tdap/Td Vaccine (1 - Tdap) 1954 Hepatitis B Screening 1961 Pneumococcal vaccine 65+ (1 of 1 - PCV) 1993 Zoster Vaccine (1 of 2) 1993 Well Visit 65+ 2008 Depression Screening 10/16/2021 10/16/2020 Influenza Vaccine (#1) 2023 Fall Risk Assessment 01/17/2025 01/18/2024 Insurance [id number] MEDICARE ADVANTAGE [facility] Address: [place] [id number] [facility] Address: [address] [address] [place] [address] [facility] MEDICARE ADVANTAGE [facility] Address: [facility] [address] [place] [address] Advance Directives For more information, please contact: [phone] * Full Code (Latest Code Status on [...] 5:11 PM 10/18/2020 6:30 PM Care Teams Marketing Operations Assistant Relationship Specialty Start Date End Date Kathia Kurtz MD [address] [place] [address] PCP - General Family Medicine 01/14/24 Taiwo Hernandez MD Consulting Physician Gastroenterology 07/13/20 [place] [address] [place] [address] Consulting Physician Urology 08/30/23 Misti Galvin MD [address] [place] [address] [address] [place] [address] Consulting Physician Gastroenterology 08/30/23
--- OUTSIDE RECORDS SUMMARY | 2024-07-07 14:06 | XMS_ITS | CONTINUITY OF CARE DOCUMENT ---
Author Name daniel sanchez Address Unknown Organization [facility] Address [id number] [place] [address] [address] [place] [address] Phone [phone] Care Team Providers Care Animal Daycare Provider Name Role Phone Harshal LOVING, Mehdi Unavailable [phone] KRISTIN CHRISTOPHER MD Unavailable [phone] PROBLEMS Condition Status Date Provider Notes Cardiology [...] encounter Office Visit José Miguel Meyer MD [facility] Preoperative cardiovascular evaluation - In-person encounter Office Visit Mehdi Caputo MD [facility] - In-person encounter Office Visit Mehdi Caputo MD [facility] Elevated blood pressure reading without diagnosis of hypertension - In-person encounter Office Visit Mehdi Caputo MD [facility] Cardiology examinationChest painShortness of breath with exertionHTN essentialHyperlipidemia VITAL SIGNS Date Observation Value Provider Body Mass Index (Ratio) 24.96 kg/m2 Sohan Meyer MD blood pressure, diastolic 68 mm[Hg] Poonam nkLogwilbert blood pressure, systolic 138 mm[Hg] Mariah [facility] oxygen saturation, oximetry 95 % Kenyatta [place] pulse rate 84 /min Kenyatta [place] respiratory rate E&M 12 /min Kenyatta [place] weight E&M 145.4 [lb_av] Kenyatta [place] height E&M 64 [in_i] Kenyatta [place] blood pressure, cuff size regular Raymond crow [place] blood pressure, diastolic 68 mm[Hg] Raymond crow [place] blood pressure, systolic 138 mm[Hg] [facility] [place] Body Mass Index (Ratio) 34.67 kg/m2 Mirza Caputo MD blood pressure, diastolic 93 mm[Hg] Herminia Wislon blood pressure, systolic 176 mm[Hg] Lisette Wilson pulse rate 74 /min Sydni Wilson oxygen saturation, oximetry 98 % Sydni Wilson weight E&M 202 [lb_av] Sydniteri [place] blood pressure, cuff size large An froilan Wilson height E&M 64 [in_i] Sydni Wilson Body Mass Index (Ratio) 25.74 kg/m2 Mirza Caputo MD blood pressure, diastolic 96 mm[Hg] Poonam nkLogwilbert blood pressure, systolic 166 mm[Hg] Mariah og blood pressure, cuff size regular Ja rret blood pressure, diastolic 96 mm[Hg] Ja rret blood pressure, systolic 166 mm[Hg] Jar ret pulse rate 74 /min Joreg respiratory rate E&M 16 /min Jorge oxygen [...] party ID [employer] HMO-POS HMO [id number] ADVANCE DIRECTIVES Name Date DISCUSSED - NO DECISION MADE TREATMENT PLAN Date Name Performer [id number],C,on statin Ruth Ann Caputo MD [id number],C,BP elevated.O n coreg. Mehdi Caputo MD [id number],W,L eft arm and left chest pain with [...] twice a day Orders: S tress Regadenoson ([id number]) Faustino Quintana [facility]: H er updated medication list for this problem includes: Atorvastatin 40 Mg Tablet (Atorvastatin) ..... Take 1 tablet by mouth once a day Faustino Quintana Cardiology: O rders: S tress Regadenoson ([id number]) Faustino Quintana [facility]: O rders: S tress Regadenoson ([id number]) Her updated medication list for this problem [...]
== END 2024-07-07 13:55 | disposition home or self-care (01) ==
PROVIDERS: Emergency Provider Nurse Practitioner Family
DX: S20.362A Insect bite (nonvenomous) of left front wall of thorax, initial encounter (principal); W57.XXXA Bitten or stung by nonvenomous insect and other nonvenomous arthropods, initial encounter
CPT/HCPCS: 99213; G0463